=== PATIENT | male | born 2000 | race Hispanic/Latino ===

== ENCOUNTER 2019-07-04 07:38 | Emergency (ER) | payer OTHER ==
[~2019-07-04] VITALS: Ht 170.2 cm; Wt 95.3 kg
[2019-07-04] MEDS ORDERED: ONDANSETRON 4 MG ORAL DISINTEGRATING TAB (Q0162 PER 1MG) PO ONE (08:15)
[2019-07-04 08:58] LABS: BASO # 0.1 10^3/uL (0.0-0.2); BASO % 0.6 % (0.0-1.0); EOS # 0.2 10^3/uL (0.0-0.5); EOS % 2.3 % (0.0-3.0); HEMATOCRIT 49.3 % (42.0-52.0); HEMOGLOBIN 16.1 g/dl (13.5-17.5); LYMPH % 12.2 % (24.0-44.0); MEAN CORPUSCULAR HEMOGLOBIN 29.2 pg (27.0-33.0); MEAN CORPUSCULAR HGB CONC 32.7 g/dl (32.0-36.5); MEAN CORPUSCULAR VOLUME 89.3 fl (80.0-96.0); MONO % 11.6 % (0.0-5.0); NEUTROPHILS # 6.1 10^3/uL (1.5-8.5); NEUTROPHILS % 72.7 % (36.0-66.0); PLATELET COUNT, AUTOMATED 227 10^3/uL (150-450); RED BLOOD COUNT 5.52 10^6/uL (4.30-6.10); WHITE BLOOD COUNT 8.3 10^3/uL (4.0-10.0)
[2019-07-04 09:25] LABS: ALBUMIN 4.1 GM/DL (3.2-5.2); ALT/SGPT 61 U/L (12-78); BILIRUBIN,DIRECT 0.2 MG/DL (0.0-0.2); BILIRUBIN,TOTAL 0.6 MG/DL (0.2-1.0); BLOOD UREA NITROGEN 15 MG/DL (7-18); CARBON DIOXIDE LEVEL 29 MEQ/L (21-32); CHLORIDE LEVEL 105 MEQ/L (98-107); CREATININE FOR GFR 1.31 MG/DL (0.70-1.30); GLUCOSE, FASTING 85 MG/DL (70-100); POTASSIUM SERUM 4.5 MEQ/L (3.5-5.1); SODIUM LEVEL 140 MEQ/L (136-145); TOTAL PROTEIN 7.7 GM/DL (6.4-8.2)
[2019-07-04] MEDS ORDERED: ONDA4TAB6 PO (09:33)
[2019-07-04 09:52] VITALS: BP 127/76
== END 2019-07-04 09:53 | disposition home or self-care (01) ==
LOC: M ED 07:38
DX: E86.0 Dehydration (principal)
CPT/HCPCS: 80048; 80076; 85025; 99283; Q0162

== ENCOUNTER 2019-08-21 06:40 | Emergency (ER) | payer OTHER ==
[~2019-08-21] VITALS: Ht 170.2 cm; Wt 84.1 kg
[~2019-08-21 06:40] MED LIST: ONDA4TAB6 PO
[2019-08-21 10:00] LABS: AMORPHOUS SEDIMENT SMALL (NEGATIVE); APPEARANCE, URINE HAZY (CLEAR); BACTERIA, URINE AUTO NEGATIVE (NEGATIVE); BILIRUBIN, URINE AUTO NEGATIVE (NEGATIVE); BLOOD, URINE BLOOD NEGATIVE (NEGATIVE); COLOR, URINE YELLOW (YELLOW); GLUCOSE, URINE (UA) AUTO NEGATIVE (NEGATIVE); KETONE, URINE AUTO 1+ mg/dL (NEGATIVE); LEUKOCYTE ESTERASE, URINE AUTO NEGATIVE (NEGATIVE); MUCUS, URINE SMALL (NEGATIVE); NITRITE, URINE AUTO NEGATIVE (NEGATIVE); PROTEIN, URINE AUTO 1+ mg/dL (NEGATIVE); RBC, URINE AUTO 5 /HPF (0-3); SPECIFIC GRAVITY URINE AUTO 1.034 (1.002-1.035); SQUAMOUS EPITHELIAL CELL UR AU 0 /HPF (0-6); WBC, URINE AUTO 1 /HPF (0-3)
[2019-08-21 10:07] LABS: BASO % 0.3 % (0.0-1.0); EOS % 0.2 % (0.0-3.0); HEMATOCRIT 51.6 % (42.0-52.0); HEMOGLOBIN 17.6 g/dl (13.5-17.5); LYMPH # 2.1 10^3/uL (1.5-5.0); LYMPH % 16.6 % (24.0-44.0); MEAN CORPUSCULAR HEMOGLOBIN 29.4 pg (27.0-33.0); MEAN CORPUSCULAR HGB CONC 34.1 g/dl (32.0-36.5); MEAN CORPUSCULAR VOLUME 86.1 fl (80.0-96.0); MONO # 1.2 10^3/uL (0.0-0.8); MONO % 9.2 % (0.0-5.0); NEUTROPHILS # 9.3 10^3/uL (1.5-8.5); NEUTROPHILS % 73.3 % (36.0-66.0); PLATELET COUNT, AUTOMATED 340 10^3/uL (150-450); RED BLOOD COUNT 5.99 10^6/uL (4.30-6.10); WHITE BLOOD COUNT 12.7 10^3/uL (4.0-10.0)
[2019-08-21 10:30] LABS: INFLUENZA A AMPLIFICATION NEGATIVE (NEGATIVE); INFLUENZA B AMPLIFICATION NEGATIVE (NEGATIVE)
[2019-08-21] MEDS ORDERED: NS 1,000 ML IV ONE (10:30)
[2019-08-21] MEDS ORDERED: PANTOPRAZOLE 40MG INJ (PROTONIX) (C9113) IV ONE (10:30)
[2019-08-21] MEDS ORDERED: FAMOTIDINE IV BAG 20 MG in IV 1 EA IV ONE (10:30)
[2019-08-21 10:31] LABS: ALBUMIN 5.2 GM/DL (3.2-5.2); BILIRUBIN,DIRECT 0.4 MG/DL (0.0-0.2); BILIRUBIN,TOTAL 1.6 MG/DL (0.2-1.0); TOTAL PROTEIN 8.8 GM/DL (6.4-8.2)
[2019-08-21] MEDS ORDERED: ISOVUE-370 76% 100ML VIAL (Q9967) As Ordered ONE (10:43)
--- NOTE | 2019-08-21 11:12 | REP ---
Clinical: Abdominal pain. Technique: Axial contrast enhanced images from the lung bases to the pubic symphysis using 100 ml Isovue 370 intravenous contrast material with coronal and sagittal re-formations. Findings: Lung bases are clear. Visualized heart and pericardium normal. Liver, spleen, pancreas, gallbladder, bilateral adrenal glands and kidneys are normal. The enteric system is without obstruction or acute inflammatory process. Normal terminal ileum and appendix. Pelvis demonstrates normal bladder and age appropriate prostate/seminal vesicles. No ascites. No free air. No adenopathy. Abdominal aorta and vasculature normal. Musculoskeletal structures are intact. Impression: Normal contrast enhanced CT of the abdomen and pelvis. Electronically Signed by Fredi Germain MD 08/21/2019 11:03 A
[2019-08-21] MEDS ORDERED: SUCRALFATE SUSP 1GM/10ML UD PO ONE (13:00)
[2019-08-21] MEDS ORDERED: SUCR1SS PO (13:31)
[2019-08-21] MEDS ORDERED: FAMO40TA3 PO (13:31)
[2019-08-21] MEDS ORDERED: OMEP40CA97 PO (13:31)
[2019-08-21 13:52] VITALS: BP 140/62
== END 2019-08-21 13:55 | disposition home or self-care (01) ==
LOC: M ED 06:40
DX: K29.70 Gastritis, unspecified, without bleeding (principal)
CPT/HCPCS: 74177; 80047; 80076; 81001; 82150; 83690; 85025; 87502; 96361; 96365; 96375; 99284; C9113; Q9967

== ENCOUNTER 2020-05-18 08:54 | Day surgery (SDC) | payer OTHER ==
[~2020-05-18] VITALS: Ht 170.2 cm; Wt 86.2 kg
[~2020-05-18 08:54] MED LIST changes: +FAMO40TA3 PO; +LIDOCAINE 2% 100MG/5ML SDV (FOR ANES.) As Ordered ONE; +NS 1,000 ML IV ONE; +OMEP40CA97 PO; +SUCR1SS PO; +propofoL 200 MG/20 ML VIAL As Ordered ONE
[2020-05-18] MEDS ORDERED: CARA1TAB6 PO (09:18)
--- NOTE | 2020-05-18 09:59 | ROOR ---
Patient Name: Carlos Bray Procedure Date: 05/18/2020 9:48 AM Date of : 2000 Age: 19 Room: [facility] Gender: Male Note Status: Finalized Procedure: Upper GI endoscopy Indications: Epigastric abdominal pain, Heartburn Providers: Kyle Yates MD Referring MD: EMERSON NORMAN MD Requesting Provider: Medicines: Monitored Anesthesia Care Complications: No immediate complications. Procedure: Pre-Anesthesia Assessment: - The heart rate, respiratory rate, oxygen saturations, blood pressure, adequacy of pulmonary ventilation, and response to care were monitored throughout the procedure. The Endoscope was introduced through the mouth, and advanced to the second part of duodenum. The upper GI endoscopy was accomplished without difficulty. The patient tolerated the procedure well. Findings: The Z-line was regular and was found 35 cm from the incisors. No other significant abnormalities were identified in a careful examination of the stomach. The exam of the duodenum was otherwise normal. Impression: - Z-line regular, 35 cm from the incisors. - No specimens collected. - The examination was otherwise normal. Recommendation: - Patient has a contact number available for emergencies. The signs and symptoms of potential delayed complications were discussed with the patient. Return to normal activities tomorrow. Written discharge instructions were provided to the patient. - High fiber diet. - Discharge patient to home. - Continue present medications. - Return to referring physician. - The findings and recommendations were discussed with the patient. Kyle Yates MD Kyle Yates MD 05/18/2020 9:58:44 AM Electronically signed by Kyle Yates MD Number of Addenda: 0 Note Initiated On: 05/18/2020 9:48 AM Estimated Blood Loss: Estimated blood loss: none.
--- NOTE | 2020-05-18 10:11 | ROOR ---
Patient Name: Carlos Bray Procedure Date: 05/18/2020 9:49 AM Date of : 2000 Age: 19 Room: [facility] Gender: Male Note Status: Finalized Procedure: Total Colonoscopy to Cecum + ileoscopy + Bx Indications: Clinically significant diarrhea of unexplained origin Providers: Kyle Yates MD Referring MD: EMERSON NORMAN MD Requesting Provider: Medicines: Monitored Anesthesia Care Complications: No immediate complications. Procedure: Pre-Anesthesia Assessment: - The heart rate, respiratory rate, oxygen saturations, blood pressure, adequacy of pulmonary ventilation, and response to care were monitored throughout the procedure. The Colonoscope was introduced through the anus and advanced to the terminal ileum, with identification of the appendiceal orifice and IC valve. The colonoscopy was performed without difficulty. The patient tolerated the procedure well. The quality of the bowel preparation was excellent. Findings: The perianal and digital rectal examinations were normal. No other significant abnormalities were identified in a careful examination of the remainder of the colon. The terminal ileum appeared normal. Biopsies for histology were taken with a cold forceps from the transverse colon and descending colon for evaluation of microscopic colitis. The exam was otherwise without abnormality. Impression: - The examined portion of the ileum was normal. - The examination was otherwise normal. - Biopsies were taken with a cold forceps from the transverse colon and descending colon for evaluation of microscopic colitis. - The exam was otherwise normal to the cecum. Recommendation: - Patient has a contact number available for emergencies. The signs and symptoms of potential delayed complications were discussed with the patient. Return to normal activities tomorrow. Written discharge instructions were provided to the patient. - High fiber diet. - Discharge patient to home. - Continue present medications. - Await pathology results. - Telephone GI clinic for pathology results in 1 week. - Repeat colonoscopy at age 49 for screening purposes. - Return to referring physician. - The findings and recommendations were discussed with the patient. Kyle Yates MD Kyle Yates MD 05/18/2020 10:10:35 AM Electronically signed by Kyle Yates MD Number of Addenda: 0 Note Initiated On: 05/18/2020 9:49 AM Estimated Blood Loss: Estimated blood loss: none.
[2020-05-18] MEDS ORDERED: propofoL 200 MG/20 ML VIAL As Ordered ONE (10:12)
[2020-05-18 10:40] VITALS: BP 114/75
== END 2020-05-18 10:50 | disposition home or self-care (01) ==
LOC: M OPP 08:54
PROVIDERS: ATTEND Internal Medicine Gastroenterology
DX: R19.7 Diarrhea, unspecified (principal); R10.13 Epigastric pain; F17.290 Nicotine dependence, other tobacco product, uncomplicated

== ENCOUNTER 2020-07-26 18:06 | Emergency (ER) | payer OTHER ==
[~2020-07-26] VITALS: Ht 170.2 cm; Wt 85.8 kg
[2020-07-26 18:06] VITALS: BP 124/72
[~2020-07-26 18:06] MED LIST changes: +CARA1TAB6 PO; -LIDOCAINE 2% 100MG/5ML SDV (FOR ANES.) As Ordered ONE; -NS 1,000 ML IV ONE; -propofoL 200 MG/20 ML VIAL As Ordered ONE
--- OUTSIDE RECORDS SUMMARY | 2020-07-26 18:12 | CCD | Continuity of Care Document ---
Author Author Carlos YATES M.D Organization Unknown Address [address] [place] [id number] Phone [phone] Care Team Providers Care Clinical Veterinarian Name Role Phone Serge [facility] Problems Active Problems Provider Date Abdominal pain Kyle Yates M.D. Onset: 04/30/20 19 Social History Type Date Description Comments Sex Unknown ETOH Use Denies alcohol use Tobacco Use Start: Unknown Electronic Cigarette VAPE DAILY Allergies, Adverse Reactions, Alerts Description No Known Drug Allergies Medications Active Medications SIG Qnty Indications Ordering Provide r Date Suprep Bowel Prep Kit 17.5-3.13-1.6GM/177ML Solution use as directed 354ml Kyle Yates M.D. 04/30/2020 Carafate 1gm Tablets 1 tab by mouth four times a day before meals at bedtime Unknown Omeprazole 40mg Capsules DR 1 cap by mouth every morning Unknown Immunizations Description No Information Available Vital Signs Date Vital Result Comment 04/30/2020 10:00am Height 67 inches 5'7" Weight 195.00 lb BP Systolic 111 mmHg BP Diastolic 77 mmHg Heart Rate 69 /min BMI (Body Mass Index) 30.5 kg/m2 Weight 88.452 kg Body Temperature 97.5 F Results Test Acquired Date Facility Test Result H/L Range Note Laboratory test finding 05/18/2020 [facility] [address] [place] [address] Pathology Request For Service (SEE NOTE) 1, 2 1 FINAL DIAGNOSIS Colon, random, biopsies: Colonic mucosa with no specific changes. No evidence for microscopic colitis. 05/20/2020 - 0730 CLINICAL DIAGNOSIS Abdominal pain, heartburn, diarrhea 05/18/2020 - 1438 GROSS DIAGNOSIS Received in formalin labeled "random colon biopsies" is one fragment of stinson tissue 0.2 x 0.2 x 0.2 cm. All in one. -SV 05/18/2020 - 1437 Signed RACHELL GARCIA MD 05/20/2020 1405 2 05/24/20 (Sun May 24) 10:19 PM KYLE YATES biopsies are all negative for any path. Procedures Date Code Description Status 05/18/2020 94315 Colonoscopy Flexible W/Biopsy Co mpleted 05/18/2020 80477 Endoscopy Upper GI Complex Diagn ostic Completed Medical Devices Description No Information Available Encounters Type Date Location Provider Dx Diagnosis Office Visit 04/30/2020 9:45a Main Office Kyle Yates M.D. R 19.7 Diarrhea, unspecified K21.9 Gastro-esophageal reflux dis ease without esophagitis Assessments Date Code Description Provider 05/18/2020 R19.7 Diarrhea, unspecified Kyle Yates M.D. 05/18/2020 K63.89 Other specified diseases of inte adamaris Kyle Yates M.D. 05/18/2020 R10.13 Epigastric pain Kyle rollins M.D. 04/30/2020 R19.7 Diarrhea Kyle rollins M.D. 04/30/2020 K21.9 Gastroesophageal reflux disease Kyle Yates M.D. Plan of Treatment 04/30/2020 - Kyle Yates M.D.* R19.7 Diarrhea* Comments:* 19 yo ADS who presents for a h/o abdominal pain, and diarrhea since 06/27. No c/o weight loss, change in bowel habits, or rectal bleeding. No family h/o colon cancer. No h/o chest pain, or sob. Plan:1. Colonoscopy + egd.2. Informed consent. * K21.9 Gastroesophageal reflux disease* Comments:* As above. Functional Status Description No Information Available Mental Status Description No Information Available Referrals Refer to Reason for Referral Status Appt Date Kyle Yates M.D. Created [address] [place] [address] [phone]
--- OUTSIDE RECORDS SUMMARY | 2020-07-26 18:12 | CCD ---
Author Author [facility] Organization [facility] Address Unknown Phone Unavailable Care Team Providers Care Hat Copyist Name Role Phone Brigette Yates MD Unavailable Unavailable Brigette Yates MD Unavailable Unavailable Brigette Yates MD Unavailable Unavailable Brigette Yates MD Unavailable Unavailable Brigette Yates MD Unavailable Unavailable Brigette Yates MD Unavailable Unavailable Brigette Yates MD Unavailable Unavailable Brigette Yates MD Unavailable Unavailable Brigette Yates MD Unavailable Unavailable Brigette Yates MD Unavailable Unavailable Brigette Yates MD Unavailable Unavailable Brigette Yates MD Unavailable Unavailable Brigette Yates MD Unavailable Unavailable Brigette Yates MD Unavailable Unavailable Brigette Yates MD Unavailable Unavailable Brigette Yates MD Unavailable Unavailable Brigette Yates MD Unavailable Unavailable Brigette Yates MD Unavailable Unavailable Brigette Yates MD Unavailable Unavailable Brigette Yates MD Unavailable Unavailable Brigette Yates MD Unavailable Unavailable Brigette Yates MD Unavailable Unavailable Brigette Yates MD Unavailable Unavailable Brigette Yates MD Unavailable Unavailable Brigette Yates MD Unavailable Unavailable Brigette Yates MD Unavailable Unavailable Brigette Yates MD Unavailable Unavailable Brigette Yates MD Unavailable Unavailable Brigette Yates MD Unavailable Unavailable Brigette Yates MD Unavailable Unavailable Brigetet Yates MD Unavailable Unavailable Brigette Yates MD Unavailable Unavailable Milan, S Kyle GRAY Unavailable Unavailable Milan, S yKle GRAY Unavailable Unavailable Milan, S Kyle MD Unavailable Unavailable Milan, S Kyle MD Unavailable Unavailable Milan, S Kyle MD Unavailable Unavailable Milan, S Kyle MD Unavailable Unavailable Milan, S Kyle MD Unavailable Unavailable Milan, S Kyle MD Unavailable Unavailable Milan, S Kyle MD Unavailable Unavailable Milan, S Kyle MD Unavailable Unavailable Milan, S Kyle MD Unavailable Unavailable Milan, S Kyle MD Unavailable Unavailable Milan, S Kyle MD Unavailable Unavailable Milan, S Kyle MD Unavailable Unavailable Milan, S Kyle MD Unavailable Unavailable LESTER BAPTISTE MD Unavailable [phone] LESTER BAPTISTE MD Unavailable [phone] LESTER BAPTISTE MD Unavailable [phone] LESTER BAPTISTE MD Unavailable [phone] LESTER BAPTISTE MD Unavailable [phone] LESTER BAPTISTE MD Unavailable [phone] 05 LSETER BAPTISTE MD Unavailable [phone] LESTER BAPTISTE MD Unavailable [phone] LESTER BAPTISTE MD Unavailable [phone] 05 LESTER BAPTISTE MD Unavailable [phone] 05 LESTER BAPTISTE MD Unavailable [phone] 05 LESTER BAPTISTE MD Unavailable [phone] 05 LESTER BAPTISTE MD Unavailable [phone] 05 LESTER BAPTISTE MD Unavailable [phone] 05 LESTER BAPTISTE MD Unavailable [phone] 05 LESTER BAPTISTE MD Unavailable [phone] 05 LESTER BAPTISTE MD Unavailable [phone] 05 LESTER BAPTISTE MD Unavailable [phone] 05 LESTER BAPTISTE MD Unavailable [phone] 05 LESTER BAPTISTE MD Unavailable [phone] 05 LESTER BAPTISTE MD Unavailable [phone] LESTER BAPTISTE MD Unavailable [phone] BLACK, LESTER SMITH MD Unavailable [phone] BLACK, LESTER SMITH MD Unavailable [phone] BLACK, LESTER SMITH MD Unavailable [phone] BLACK, LESTER SMITH MD Unavailable [phone] BLACK, LESTER SMITH MD Unavailable [phone] BLACK, LESTER SMITH MD Unavailable [phone] BLACK, LESTER SMITH MD Unavailable [phone] BLACK, LESTER SMITH MD Unavailable [phone] BLACK, LESTER SMITH MD Unavailable [phone] BLACK, LESTER SMITH MD Unavailable [phone] BLACK, LESTER SMITH MD Unavailable [phone] BLACK, LESTER SMITH MD Unavailable [phone] BLACK, LESTER SMITH MD Unavailable [phone] BLACK, LESTER SMITH MD Unavailable [phone] BLACK, LESTER SMITH MD Unavailable [phone] BLACK, LESTER SMITH MD Unavailable [phone] BLACK, LESTER SMITH MD Unavailable [phone] BLACK, LESTER SMITH MD Unavailable [phone] BLACK, LESTER SMITH MD Unavailable [phone] 05 BLACK, LESTER SMITH MD Unavailable [phone] 05 BLACK, LESTER SMITH MD Unavailable [phone] 05 BLACK, LESTER SMITH MD Unavailable [phone] 05 BLACK, LESTER SMITH MD Unavailable [phone] 05 BLACK, LESTER SMITH MD Unavailable [phone] BLACK, LESTER SMITH MD Unavailable [phone] BLACK, LESTER SMITH MD Unavailable [phone] BLACK, LESTER SMITH MD Unavailable [phone] UNKNOWN, [facility] Unavailable Unavailable Lucy RIVERA MD Unavailable Unavailable Lucy RIVERA MD Unavailable Unavailable MIGUEL, L WU MD Unavailable Unavailable MIGUEL, L WU MD Unavailable Unavailable MIGUEL, L WU MD Unavailable Unavailable MIGUEL, L WU MD Unavailable Unavailable MIGUEL, L WU MD Unavailable Unavailable MIGUEL, L WU MD Unavailable Unavailable MIGUEL, L WU MD Unavailable Unavailable MIGUEL, L WU MD Unavailable Unavailable MIGUEL, L WU MD Unavailable Unavailable MIGUEL, L WU MD Unavailable Unavailable MIGUEL, L WU MD Unavailable Unavailable MIGUEL, L WU MD Unavailable Unavailable MIGUEL, L WU MD Unavailable Unavailable MIGUEL, L WU MD Unavailable Unavailable MIGUEL, L WU MD Unavailable Unavailable MIGUEL, L WU MD Unavailable Unavailable MIGUEL, L WU MD Unavailable Unavailable MIGUEL, L WU MD Unavailable Unavailable MIGUEL, L WU MD Unavailable Unavailable MIGUEL, L WU MD Unavailable Unavailable MIGUEL, L WU MD Unavailable Unavailable Re-disclosure Warning The records that you are about to access may contain information from federally-assisted alcohol or drug abuse programs. If such information is present, then the following federally mandated warning applies: This information has been disclosed to you from records protected by federal confidentiality rules (42 CFR part 2). The federal rules prohibit you from making any further disclosure of this information unless further disclosure is expressly permitted by the written consent of the person to whom it pertains or as otherwise permitted by 42 CFR part 2. A general authorization for the release of medical or other information is NOT sufficient for this purpose. The Federal rules restrict any use of the information to criminally investigate or prosecute any alcohol or drug abuse patient.The records that you are about to access may contain highly sensitive health information, the redisclosure of which is protected by Article 27-F of the [facility] Public Health law. If you continue you may have access to information: Regarding HIV / AIDS; Provided by facilities licensed or operated by the [facility] Office of Mental Health; or Provided by the [facility] Office for People With Developmental Disabilities. If such information is present, then the following [facility] mandated warning applies: This information has been disclosed to you from confidential records which are protected by state law. State law prohibits you from making any further disclosure of this information without the specific written consent of the person to whom it pertains, or as otherwise permitted by law. Any unauthorized further disclosure in violation of state law may result in a fine or nursing home sentence or both. A general authorization for the release of medical or other information is NOT sufficient authorization for further disc losure. Encounters Encounter Providers Location Date Indications Data Source(s ) Emergency Attender: WU RIVERA MDConsultant: EMERSON MONTEZ 07/20/2020 01:59:00 AM EST - 07/20/2020 03:20:00 AM [facility] Patient discharged. Outpatient Attender: Kyle Yates MD Main Office 04/30/2020 09:45:00 AM EDT [facility] ([facility]) Outpatient 09/03/2019 08:02:00 AM [facility] Emergency Attender: SARAH BAPTISTE MD 0 07/17/2019 06:11:00 PM EST - 07/17/2019 07:13:00 PM [facility] Patient admitted. Medications Medication Brand Name Start Date Product Form Dose Route Admi nistrative Instructions Pharmacy Instructions Status Indications Reaction Description Data Source(s) Suprep Bowel Prep Kit Suprep Bowel Prep Kit 04/30/2020 12:00:00 AM EDT active [facility] ([facility]) Insurance Providers Payer name Policy type / Coverage type Policy ID Covered republican ID Covered republican's relationship to joseph Policy Joseph Plan Information [facility] [id number] SP [id number] [facility] HU[facility]NA - O/P [id number] 18 [id number] [facility] O [id number] S [id number] SELF PAY ONLY [id number] SP [id number] Problems, Conditions, and Diagnoses Code Display Name Description Problem Type Effective Dates Data Source(s) 68690236 Abdominal pain Abdominal pain Problem 04/30/2020 12:00: 00 AM EDT [facility] ([facility]) [id number] Un[address] in unspeci fied non-institutional (private) residence as the place of occurrence of the external cause Unspecified place in unspecified non-institutional (private) residence as the place of occurrence of the external cause Diagnosis 07/20/2020 01:59:00 AM [facility] [id number] Bitten by dog, initial encounter Bitten by dog, initial encounter Diagnosis 07/20/2020 01:59:00 AM [facility] [id number] Other rat exterminator (current) drug therapy O ther rat exterminator (current) drug therapy Diagnosis 07/20/2020 01:59:00 AM [facility] [id number] Laceration without foreign b joanne of other part of head, initial encounter Laceration without foreign body of other part of head, initial encounter Diagnosis 07/20/2020 01:59:00 AM [facility] [id number] Open bite of other part of head, initial encounter Open bite of other part of head, initial encounter Diagnosis 07/20/2020 01:59:00 AM [facility] R1013 Epigastric pain Epigastric pain Diagnosis 07/17/2019 06:1 1:00 PM [facility] R112 Nausea with vomiting, unspecified Nausea with vo miting, unspecified Diagnosis 07/17/2019 06:11:00 PM [facility] Surgeries/Procedures Procedure Description Date Indications Data Source(s) UPPER GI NDSC DX W/WO COLLECTION SPECIMEN 05/18/2020 1 2:00:00 AM EST [facility] ([facility]) COLONOSCOPY W/BIOPSY SINGLE/MULTIPLE 05/18/2020 12:00: 00 AM EST [facility] ([facility]) Results ID Date Data Source [id number] 07/20/2020 01:59:00 AM [facility] 1 OrderSheet [facility] Emergency Department [address] [place] [address] Phone #: [phone]- [phone] 07/20/2020 01:59 Patient: NEVA GUILLAUME Sex: M : 2000 Age: 19yWEIGHT:85.7 kg (S) HEIGHT:67 inches (S) BMI:29.6ALLERGIES: No Known Drug AllergyCHIEF COMPLAINT: dogDIAGNOSIS: Laceration - Injury, Bite of animalLAB ORDERSOrder Description Priority Entered Acknowledged InitialedDIAGNOSTIC STUDY ORDERSOrder Description Priority Entered Acknowledged InitialedMEDICATION/IV/DRIP/FLUID ORDERSOrder Description Priority Entered Acknowledged InitialedBacitracin Zinc 03:06 07/20/2020 03:13 Melany,Topical 1 Wu Rivera MD; Sonja Olveraapplicat Micheleentin PO 875 03:06 07/20/2020 03:12 mg Salud (NOW x1) Wu Rivera MD; Sonja OlveraGENERAL ORDERSOrder Description Priority Entered Acknowledged Initialed[Electronically signed by Sonja Brannon R.N. (03:20 07/20/2020)][Electronically signed by Wu Rivera MD (03:26 07/20/2020)][Electronically locked by Sonja Brannon R.N. (03:07/20/2020)] Name Value Range Interpretation Code Description Data Rashida rce(s) Supporting Document(s) ID Date Data Source [id number] 07/20/2020 01:59:00 AM EST [facility] 1 Medication Reconciliation Report [facility] Emergency Department [address] [place] [address] Phone #: ext- [phone] 07/20/2020 01:59 Patient: NEVA GUILLAUME Sex: M : 2000 Age: 19yWeight: 85.7 kgHeight/Length: 67 in.BMI: 29.6ALLERGIES: No Known Drug AllergyThe patient's Home Medications are listed below:CONTINUE TAKING THE FOLLOWING MEDICATIONS: Carafate Oral Omeprazole OralThe source(s) of the original Home Medication information:Not obtained.The following Medications were given to the patient in the Emergency Department:Augmentin [PO] PO 875 mg, administered: 03:12 07/20/2020acitracin Zinc [Topical] Topical 1 application, administered: 03:13 07/20/2020The following Medications were prescribed to the patient:Augmentin 875 mg-125 mg tablet Take 1 tablet twice a day -- Dispense 20 tablet. Refills: 0. Substitutionpermitted.Pharmacy - [facility] [id number] ; [place] [id number]. . -- Wu Rivera MD Name Value Range Interpretation Code Description Data Rashida rce(s) Supporting Document(s) ID Date Data Source [id number] 07/20/2020 01:59:00 AM [facility] 1 Medication Administration Record [facility] Emergency Department [address] [place] [address] Phone #: ext- [phone] 07/20/2020 01:59 Patient: NEVA GUILLAUME Sex: M : 2000 Age: 19yWeight: 85.7 kgHeight/Length: 67 inBMI: 29.6ALLERGIES: No Known Drug Allergy Date/Time Medication Administered Medication OrderedGiven BACITRACIN ZINC [TOPICAL] Bacitracin Zinc Topical 103:13 07/20/2020 Dose: 1 application Topical applicationSonja Brannon RRajGiven AUGMENTIN [PO] (AMOXICILLIN-POT Augmentin PO 875 mg (NOW x1)03:12 07/20/2020 CLAVULANATE)Sonja Brannon R.N. Dose: 875 mg PO Name Value Range Interpretation Code Description Data Rashida rce(s) Supporting Document(s) ID Date Data Source [id number] 07/20/2020 01:59:00 AM EST [facility] 1 General Instructions [facility] Emergency Department [address] [place] [address] Phone #: ext- [phone] 07/20/2020 01:59 Patient: NEVA GUILLAUME Sex: M : 2000 Age: 19y Multiple deep dog bites to the chin and left cheek area. Multiple lacerations to the left cheek area.INSTRUCTIONS (Take tylenol and motrin for pain. Take the augmentin to help prevent infection. return if worse or any symptoms that may be associated with infection including redness, swelling, pus coming out of the wound, fever or chills. Please follow up with your doctor or come back to the ED for suture removal in 1 week. apply antibiotic ointment over the wound twice a day for 1 week. after the sutures come out, apply vitamin e oil and sunscreen to the healed wounds daily to help prevent scaring. do this for 2 years daily. The ED or [facility] control/[facility] will contact you regarding the possible need for rabies vaccine.). Warnings: INFECTION: Watch for signs of infection (increasing heat and redness, pus-like drainage, swelling, or increased pain). Return or see your doctor if these signs occur. GENERAL WARNINGS: Return or contact your physician immediately if your condition worsens or changes unexpectedly, if not improving as expected, or if other problems arise. Your Current Medications: Your current home medications have been reviewed. CONTINUE TAKING THE FOLLOWING MEDICATIONS: Carafate Oral. Omeprazole Oral. Prescription Medications: Augmentin 875 mg-125 mg tablet Take 1 tablet twice a day -- Dispense 20 tablet. Refills: 0. Substitution permitted. Pharmacy - [facility] [id number] ; [place] [address]. . Follow-up: Follow up with your doctor in one week for suture removal and wound check. Call for an appointment. Reason for referral: evaluation. Summary of care provided to patient via paper. Understanding of the discharge instructions verbalized by patient. ADDITIONAL INFORMATIONAnimal Bite (General) 2 General Instructions [facility] Emergency Department [address] [place] [address] Phone #: ext- [phone] 07/20/2020 01:59 Patient: NEVA GUILLAUME Sex: M : 2000 Age: 19yAn animal bite can cause a wound deep enough to break the skin. In such cases, the wound iscleaned and then sometimes closed. If the wound is closed, it may not be closed completely. This isso that fluid can drain and prevent the wound from becoming infected. In addition to wound care, atetanus shot (injectio n) may be given, if needed.Home care Care for the wound as directed. If a dressing was applied to the wound, change it as directed. Wash your hands well with soap and warm water before and after caring for the wound. This helps lower the risk of infection. If the wound bleeds, place a clean, soft cloth on the wound. Then firmly apply pressure until the bleeding stops. This may take up to 5 minutes. Don't release the pressure and look at the wound during this time. Most skin wounds heal within 10 days. But an infection can occur even with correct treatment. So be sure to watch the wound for signs of infection (see below). Check the wound as often as directed by your healthcare provider. Antibiotics may be prescribed. These help prevent or treat infection. If you're given antibiotics, take them as directed. Also be sure to complete the medicines.Rabies preventionRabies is a virus that can be carried in certain animals. These can include domestic animals such as 3 General Instructions [facility] Emergency Department [address] [place] [address] Phone #: ext- [phone] 07/20/2020 01:59 Patient: NEVA GUILLAUME Sex: M : 2000 Age: 19ydogs and cats. Wild animals such as skunks, raccoons, foxes, and bats can also carry rabies. Petsfully vaccinated against rabies (2 shots) are at very low risk of infection. But because human rabies isalmost always fatal, any biting pet should be confined for 10 days as an extra safety measure. Ingeneral, if there is a risk for rabies, the following steps may need to be taken: If someone's pet dog or cat has bitten you, it should be kept in a secure area for the next 10 days to watch for signs of illness. (If the pet optometrist/practice owner won't allow this, contact your local animal control center.) Ask the pet optometrist/practice owner for vaccination records if available. If the dog or cat becomes ill or dies during that time, contact your local animal control center at once so the animal may be tested for rabies. If the pet stays healthy for the next 10 days, there is no danger of rabies in the animal or you. If a stray pet bit you, contact your local animal control center. They can give information on capture, quarantine, and animal rabies testing. If you can't find the animal that bit you in the next 2 days, and if rabies exists in your region, you may need to receive the rabies vaccine series. Call your healthcare provider right away. Or return to the emergency department right away. All animal bites should be reported to the local animal control center. If you were not given a form to fill out, you can report this yourself.Follow-up careFollow up with your healthcare provider, or as directed.When to get medical adviceGet medical care right away if any of these occur: Signs of infection: o Spreading redness or warmth from the wound o Increased pain or swelling o Fever of 100.4F (38C) or higher, or as directed by your healthcare provider o Colored fluid or pus draining from the wound Signs of rabies infection: o Headache o Confusion o Strange behavior 4 General Instructions [facility] Emergency Department [address] [place] [address] Phone #: ext- [phone] 07/20/2020 01:59 Patient: NEAV GUILLAUME Sex: M : 2000 Age: 19y o Increased salivating and drooling o Seizure Decreased ability to move any body part near the bite area Bleeding that can't be stopped after 5 minutes of firm pressure [employer]. [address] [place] [address]. All rights reserved. This information is not intended as asubstitute for professional medical care. Always follow your healthcare es fabio's instructions.Rabies Vaccine suspension for injectionWhat is this medicine?RABIES VACCINE (ray BEES vax EEN) is used to prevent rabies infection. Rabies is mostly adisease of animals. Humans may get rabies if they are bitten by animals that have rabies. Thevaccine may be given to protect someone with a high risk of rabies or it may be given to someoneafter they have been exposed.How should I use this medicine?This vaccine is for injection into a muscle. It is given by a health healthcare science specialist.A copy of Vaccine Information Statements will be given before each vaccination. Read this sheetcarefully each time. The sheet may change frequently.Talk to your powder room attendant regarding the use of this medicine in children. While this drug may beprescribed for children and infants, precautions do apply.What side effects may I notice from receiving this medicine?Side effects that you should report to your doctor or health healthcare science specialist as soon as possible: allergic reactions like skin rash, itching or hives, swelling of the face, lips, or tongue changes in vision joint pain with fever pain, tingling, numbness in the hands or feet stiff neck and sensitivity to light unusually weak or tiredSide effects that usually do not require medical attention (report to your doctor or health careprofessional if they continue or are bothersome): 5 General Instructions [facility] Emergency Department [address] [place] [address] Phone #: [phone] 07/20/2020 01:59 Patient: NEVA GUILLAUME Sex: Tri : 2000 Age: 19y dizziness headache muscle aches and pains pain, redness, itching or swelling at site where injected stomach pain tirednessWhat may interact with this medicine? antimalarial drugs etanercept immune globulins infliximab medicines for organ transplan t medicines to treat cancer other vaccines some medicines for arthritis steroid medicines like prednisone or cortisoneWhat if I miss a dose?Keep appointments for follow-up doses as directed. It is important not to miss your dose. Call yourdoctor or health healthcare science specialist if you are unable to keep an appointment. All of the vaccine dosesmust be given in order to provide proper protection.Where should I keep my medicine?This drug is given in a hospital or clinic and will not be stored at home.What should I tell my health care provider before I take this medicine?They need to know if you have any of these conditions: bleeding disorder cancer 6 General Instructions [facility] Emergency Department [address] [place] [address] Phone #: ext- [phone] 07/20/2020 01:59 Patient: NEVA GUILLAUME Sex: M : 2000 Age: 19y HIV or AIDS immune system problems low blood counts, like low white cell, platelet, or red cell counts recent or ongoing radiation therapy take medicines that treat or prevent blood clots an unusual or allergic reaction to vaccines, albumin, eggs, neomycin, other medicines, foods, dyes, or preservatives or trying to get breast-feedingWhat should I watch for while using this medicine?This vaccine, like all vaccines, may not fully protect everyone.NOTE:This sheet is a summary. It may not cover all possible information. If you have questions about this medicine, talk to your doctor, pharmacist, orhealth care provider. Copyright 2020 ElsevierLaceration, All ClosuresA laceration is a cut through the skin. This will usually require stitches or dario if it's deep. Minorcuts may be treated with a surgical tape closure or skin glue. 7 General Instructions [facility] Emergency Department [address] [place] [address] Phone #: ext- [phone] 07/20/2020 01:59 Patient: NEVA GUILLAUME Sex: M : 2000 Age: 19yHome care Your healthcare provider may prescribe an antibiotic. This is to help prevent infection. Follow all instructions for taking this medicine. Take the medicine every day until it's gone or you are told to stop. You should not have any left over. The healthcare provider may prescribe medicines for pain. If no pain medicines were prescribed, you can use [id number] pain medicines. Follow instructions for taking any pain medicines. Talk with your healthcare provider before using these medicines if you have chronic liver or kidney disease, or ever had a stomach ulcer or digestive bleeding. Follow the healthcare provider's instructions on how to care for the cut. Keep the wound clean and dry. Don't get the wound wet until you are told it's OK to do so. If the area gets wet, gently pat it dry with a clean cloth. Replace the wet bandage with a dry one. If a bandage was applied and it becomes wet or dirty, replace it. Otherwise, leave it in place for the first 24 hours. Caring for stitches or dario: Once you no longer need to keep them dry, clean the wound daily. First, remove the bandage. Then wash the area gently with soap and clean running water, or as directed by the healthcare provider. Use a wet cotton swab to loosen and remove any blood or crust that forms. After cleaning, apply a thin layer of antibiotic ointment if advised. Then put on a new bandage unless you are told not to. Caring for skin glue: Don't put apply liquid, ointment, or cream on the wound while the glue is 8 General Instructions [facility] Emergency Department [address] [place] [address] Phone #: ext- [phone] 07/20/2020 01:59 Patient: NEVA GUILLAUME Sex: M : 2000 Age: [address] Don't do activities that cause heavy sweating. Protect the wound from sunlight. Don't scratch, rub, or pick at the adhesive film. Don't place tape directly over the film. The glue should peel off naturally within 5 to 10 days. Caring for surgical tape: Keep the area dry. If it gets wet, blot it dry with a clean towel. Surgical tape usually falls off within 7 to 10 days. If it has not fallen off after 10 days, you can take it off yourself. Put mineral oil or petroleum jelly on a cotton ball and gently rub the tape until it's removed. Once you can get the wound wet, you may shower as usual but don't soak the wound in water (no tub baths or swimming). Even with proper treatment, a wound infection may sometimes occur. Check the wound daily for signs of infection listed below.Scalp woundsDuring the first 2 days, you may carefully rinse your hair in the shower to remove blood, glass or dirtparticles. After 2 days, you may shower and shampoo your hair normally. Don't soak your scalp in thetub or go swimming until the stitches or dario have been removed. Talk with your healthcareprovider before applying any antibiotic ointment to the wound.Mouth woundsEat soft foods to reduce pain. If the cut is inside of your mouth, clean by rinsing after each meal andat bedtime with a mixture of equal parts water and hydrogen peroxide (don't swallow!). Or you canuse a cotton swab to directly apply hydrogen peroxide onto the cut. You may also be prescribed achlorhexidine solution to rinse with. Mouth wounds can be painful when eating. You may use [id number] local numbing solution for pain relief. If this is not available, you may use anynumbing solution inten ded for teething babies. You may apply this directly to the sores with acotton- tip swab or with your clean finger.Follow-up careFollow up with your healthcare provider as advised. Ask your healthcare provider how long stitchesshould be left in place. Be sure to return for stitch removal as directed. If dissolving stitches wereused in the mouth, these should fall out or dissolve without the need for removal. If tape closureswere used, remove them yourself when your provider recommends if they have not fallen off on theirown. If skin glue was used, the film will wear off by itself. Generally, you should keep healing woundsout of direct sunlight for the first couple of months to try to lessen scarring.When to seek medical adviceCall your healthcare provider right away if any of these occur: 9 General Instructions [facility] Emergency Department [address] [place] [address] Phone #: ext- [phone] 07/20/2020 01:59 Patient: NEVA GUILLAUME Sex: M : 2000 Age: 19y Signs of infection, including increasing pain in the wound, increasing wound redness or swelling, or pus or bad odor coming from the wound Fever of 100.4F (38.C) or higher , or as directed by your healthcare provider Stitches or dario come apart or fall out or surgical tape falls off before 7 days and the wound appears to be reopening Wound edges reopen Wound changes colors Numbness around the wound after any numbing medicine should have worn off Decreased movement around the injured areaCall 911Call 911 if you can't control the wound bleeding with direct pressure. [phone] [employer]. [address] [place] [address], [place] [address]. All rights reserved. This information is not intended as asubstitute for professional medical care. Always follow your healthcare professional's instructions. You have been given the following additional information: Animal Bite (General) Rabies Vaccine suspension for injection Laceration: All Closures(Electronically signed by Wu Rivera MD 07/20/2020 03:26) Name Value Range Interpretation Code Description Data Rashida rce(s) Supporting Document(s) ID Date Data Source [id number] 07/20/2020 01:59:00 AM EST [facility] 1 Clinical Report - Nurses [facility] Emergency Department [address] [place] [address] Phone #: ext- [phone] 07/20/2020 01:59 Patient: NEVA GUILLAUME Sex: M : 2000 Age: 19yTRIAGEArrived by private vehicle. Historian: patient. Accompanied by friend.Acuity: LEVEL 4.Chief Complaint: DOG BITE.Alert. No acute distress.Location of injuries: face and left hand. This occurred about 15 minutes ago. Circumstances: This rebecca "unprovoked" attack. ( Patient states he was walking his dog at night when another dog came up andattacked pt and his dog. Pt has laceration to left chin and mid chin. Pt also has laceration to left 4th digit.Bleeding is controlled at this time. Pt states unknown if dog was up to date on vaccines.).Treatment RECRUITMENT AND OUTREACH ASSISTANT:None. --02:07 07/20/20 Sonja Brannon R.NLong02:02 07/20/20. BP: 149/92. MAP: 111. HR: 88. RR: 19. O2 saturation: 100% on room air. Temp: 97.7 F.Pain level now: 8/10. --02:07 07/20/20 Sonja Brannon R.N.Weight: 85.7 kg stated. Height/Length: 67 inches Per Patient. BMI: 29.6. --02:03 07/20/20 Sonja Brannon R.N.MedicationsOmeprazole Oral. --02:05 07/20/20 Sonja Brannon R.N. Carafate Oral. --02:05 07/20/20 Sonja Brannon R.N.AllergiesNo Known Drug Allergy. --02:07/20/20 Sonja Brannon R.N.PROBLEMS:Abdominal Pain. --02:05 07/20/20 Sonja Brannon R.N.ADDITIONAL SURGERIES:Colonoscopy.Tonsillectomy.[place] teeth. --02:07/20/20 Sonja Brannon R.N.HistoryPAST MEDICAL HX: Tetanus status: up-to-date. Immunizations: up-to-date.SOCIAL HX: Smoker- current status unknown (vape). No alcohol use or drug use. He was offered HIVtesting but declined. Patient education was provided. He was offered hepatitis C testing but declined. 2 Clinical Report - Nurses [facility] Emergency Department [address] [place] [address] Phone #: ext- [phone] 07/20/2020 01:59 Patient: NEVA GUILLAUME Sex: M : 2000 Age: 19y Patient education was provided. ( COVID screen negative). He has not traveled outside the [place] Infectious disease exposure: No infectious disease exposure. Patient is not a known carrier of tuberculosis, hepatitis, HIV, MRSA or VRE. Patient is not a known carrier of CRE. SELF HARM ASSESSMENT: Self harm assessment was performed. The patient answered "no" to the question(s) "Have you recently felt down, depressed, or hopeless?", "Do you have thoughts of harming or killing yourself?", "Do you have a plan for harming or killing yourself?" and "Have you recently had thoughts about harming or killing others?". ABUSE ASSESSMENT: Abuse assessment. The patient had positive responses to the question(s) "Do you feel safe in your home?", "Are you afraid to go home?" and "Has anyone hurt you or threatened to hurt you?". Abuse denied. NUTRITIONAL RISK ASSESSMENT: The nutritional risk assessment revealed no deficiencies. FUNCTIONAL ASSESSMENT: Functional assessment: no impairments noted. LEARNING NEEDS ASSESSMENT: The learning needs assessment revealed no barriers. FALL RISK ASSESSMENT: Fall risk assessment completed. No risk factors identified. SKIN INTEGRITY ASSESSMENT: Skin integrity risk assessment completed. No skin integrity risk identified. --02:07/20/20 Sonja Brannon R.N. Interventions Identification band on patient. To treatment room. --02:07/20/20 Sonja Brannon R.N.PHYSICAL ASSESSMENTAmbulatory to room.GENERAL / NEURO / PSYCH: Alert. Oriented X 4. Appears in no acute distress. Appears anxious.HEENT: Pupils equal, round and reactive to light. Head non-tender. Head: subcutaneous laceration withcontrolled bleeding localized to the chin (2 lacerations to chin).RESPIRATORY: Respirations not labored. Breath sounds within normal limits.CVS: Normal heart rate and rhythm. Pulses within normal limits. Capillary refill less than 2 seconds.GI / : Abdomen soft and nontender.EXTREMITIES: Extremities exhibit normal ROM. Neuro-vascular status intact to the extremity. Lefthand: subcutaneous laceration with controlled bleeding (left 4th digit).SKIN: Skin is warm and dry. No signs or symptoms of infection. --02:07/20/20 Sonja Brannon R.N.NURSING PROGRESS NOTESReassurance given. Two patient identifiers checked. Call light placed in reach. Side rails up x 2. Bedplaced in lowest position. Brakes of bed on. --02:07/20/20 Sonja Brannon R.N. 03:12 07/20/2020 Augmentin (Amoxicillin-Pot Clavulanate) PO 875 mg given. Allergies verified and 3 Clinical Report - Nurses [facility] Emergency Department [address] [place] [address] Phone #: ext- [phone] 07/20/2020 01:59 Patient: NEVA GUILLAUME Sex: M : 2000 Age: 19y confirmed 5 rights. Information reviewed with patient. Verbalizes understanding. --03:12 07/20/20 Sonja Brannon R.N. 03:13 07/20/2020 Bacitracin Zinc Topical 1 application given. Allergies verified and confirmed 5 rights. Information reviewed with patient. Verbalizes understanding. (chin and left 4th digit). --03:13 07/20/20 Sonja Brannon R.N. Wound irrigated with 1000 mL sterile NS using a 10 mL syringe; patient tolerated procedure well. WOUND REPAIR: Wound repair performed by ED physician. Assisted by one nurse. The wound is located on the (chin). Preparation: suture tray set-up with lidocaine. Wound cleansed per nurse with sterile saline and irrigated per physician with 1000 mL sterile saline using a syringe. Procedure: wound repaired with sutures. Post-procedure: he was stable, no complications, bleeding controlled, dressing applied and wound care instructions given. Patient tolerated the procedure well. Total time of assist / procedure: 30 minutes. --03:15 07/20/20 Sonja Brannon R.N.DISPOSITION / DISCHARGE No learning barriers present. Discharge instructions provided and reviewed with the patient. Reviewed warnings. Reviewed medication(s) side effects, precautions, dosing and course information. Prescription(s) given to the patient and sent electronically to pharmacy. Medication(s) for home use given to the patient per protocol. Treatments reviewed. Reviewed referrals. Patient verbalized understanding. Written instructions provided in [place]. ( Pt provided with suture care instructions). The patient was discharged home and accompanied by patent leather sorter. He left ambulatory and via private vehicle. Digital Recruiter driving. --03:19 07/20/20 Sonja Brannon R.N. 03:19 07/20/20. BP: 145/87. MAP: 106. HR: 86. RR: 17. O2 saturation: 99% on room air. Temp: 97.9 F. Pain level now: 09/16. --03:20 07/20/20 Sonja Brannon R.N.Locked/Released at 07/20/2020 03:20 by Sonja Brannon R.N. Name Value Range Interpretation Code Description Data Rashida rce(s) Supporting Document(s) ID Date Data Source [id number] 07/20/2020 01:59:00 AM EST [facility] 1 Clinical Report - Physicians/Mid Levels [facility] Emergency Department [address] [place] [address] Phone #: ext- [phone] 07/20/2020 01:59 Patient: NEVA GUILLAUME Sex: M : 2000 Age: 19y Arrived- By private vehicle. Historian- patient. Disposition decision: 03:07 07/20/2020.HISTORY OF PRESENT ILLNESS Chief Complaint: DOG BITE. Location of injuries- face and left hand. The injury occurred just prior to arrival. Occurred at home. This was an "unprovoked" attack. No skin rash, dizziness, itching, fainting episodes or difficulty breathing. He has not had swelling, drainage or trouble swallowing. Treatment RECRUITMENT AND OUTREACH ASSISTANT- symptoms better after treatment. (hydrogen peroxide).REVIEW OF SYSTEMSNo swelling, numbness, headache, difficulty breathing or weakness. No tingling, chest pain or pain,nausea or fever. No joint pain, abdominal pain or pain, vomiting or chills. No chills, fever, photophobia,ear pain or nasal congestion. No sore throat, cough, constipation, diarrhea or nausea. No vomiting,urinary frequency, hematuria, back pain or headache. No easy bruising or difficulty with urination. Thepatient sustained skin laceration.PAST HISTORYSee nurses notes. Tetanus immunization status is up-to-date. Additional Surgeries: Colonoscopy. Tonsillectomy. [place] teeth. Medications: Carafate Oral. Omeprazole Oral. Allergies: No Known Drug Allergy.SOCIAL HISTORYNo drug use.ADDITIONAL NOTESThe nursing notes have been reviewed.PHYSICAL EXAMVital Signs: 07/20/2020 02:02 BP: 149/92. MAP: 111. HR: 88. RR: 19. O2 saturation: 100% on room air. 2 Clinical Report - Physicians/Mid Levels [facility] Emergency Department [address] [place] [address] Phone #: ext- [phone] 07/20/2020 01:59 Patient: NEVA GUILLAUME Sex: M : 2000 Age: 19y Temp: 97.7 F. Pain level now: 02/16. Have been reviewed and appear to be correct. Hypertensive. Mean arterial pressure- high. Heart rate normal. Respiratory rate normal. Temperature normal. Oxygen saturation normal. Appearance: Alert. Oriented X3. No acute distress. Head: Left cheek: 2.5 cm laceration. Chin: 2.0 cm laceration. Eyes: Eyes normal inspection. ENT: Ears normal on inspection. Nose normal on inspection. Mouth normal on inspection. Neck: Normal inspection. Neck non-tender. Painless ROM. CVS: Heart sounds normal. Pulses normal. Respiratory: Chest normal on inspection. Painless inspiration. Breath sounds normal. Chest nontender. Abdomen: Normal inspection. Soft and nontender. Bowel sounds normal. Back: Normal inspection. No tenderness. ROM normal. Skin: Skin warm and dry. Normal skin color. Normal skin turgor. Extremities: Normal inspection. Left ring finger: 1.0 cm laceration. Pelvis stable. No lower extremity edema. Neuro: Oriented X 3. No motor deficit. No sensory deficit.PROGRESS AND PROCEDURESLaceration Repair: Location: face and left cheek. Length: 2.5 cm. Complexity: complex (requiringalignment of multiple flaps).Wound depth/shape- subcutaneous. Distal neuro/vascular/tendon status normal. Local anesthesiaprovided using 1% lidocaine with epi. Wound explored, cleansed, irrigated and examined to the base inbloodless field extensively with normal saline. Closure of skin: interrupted 5-0 Prolene (7 sutures).Subcutaneous closure: interrupted 5-0 Vicryl (5 sutures). Post-procedure: he is stable and there are nocomplications. Bleeding is controlled and neuro-vascular status is intact distal to the wound. Tetanusimmunization up-to-date.Laceration Repair #2: Location: chin. Length: 2.0 cm. Distal neuro/vascular/tendon status normal.Local anesthesia provided using 1% lidocaine with epi. Wound explored, cleansed and irrigatedextensively with normal saline. Closure of skin: interrupted 5-0 Prolene (4 sutures). Post-procedure: heis stable and there are no complications. Bleeding is controlled and neuro-vascular status is intact distal tothe wound. Tetanus immunization up-to-date.Laceration Repair #3: Location: left hand. Length: 1 cm. Complexity: simple (local anesthesia used).Distal neuro/vascular/tendon status normal. Local anesthesia provided using 1% lidocaine with epi.Wound explored, cleansed, irrigated and examined to the base in bloodless field extensively with normalsaline. Closure of skin: 5-0 Prolene (1 sutures). Post-procedure: he is stable and there are nocomplications. Bleeding is controlled and neuro-vascular status is intact distal to the wound. Tetanusimmunization up-to-date. Course of Care: pt is a 19 year old male who presented after a dog bite. he was walking his dog and [place] his dog. he sustained 3 lacerations which were repaired. pt tolerated procedure well. no complications. pt given 1st dose of antibiotics. a rx for Augmentin was given to him. I informed him that it would scar. he was not worried. I informed him that if he is worried about the scar, he can always have it revised by a plastic surgeon. I encouraged him to 3 Clinical Report - Physicians/Mid Levels [facility] Emergency Department [address] [place] [address] Phone #: ext- [phone] 07/20/2020 01:59 Patient: NEVA GUILLAUME Sex: M : 2000 Age: 19y apply vit e oil and sunscreen for 2 years daily after sutures come out. pt given instructions and warning regarding infection and the need to return. [facility] dispatched was notified and they will call the health dept in the morning to notify them. alissa morin filled out necessary paperwork. Patient/family counseled. Disposition: Discharged. Condition: good and stable.CLINICAL IMPRESSION Multiple deep dog bites to the chin and left cheek area. Multiple lacerations to the left cheek area.INSTRUCTIONS (Take tylenol and motrin for pain. Take the augmentin to help prevent infection. return if worse or any symptoms that may be associated with infection including redness, swelling, pus coming out of the wound, fever or chills. Please follow up with your doctor or come back to the ED for suture removal in 1 week. apply antibiotic ointment over the wound twice a day for 1 week. after the sutures come out, apply vitamin e oil and sunscreen to the healed wounds daily to help prevent scaring. do this for 2 years daily. The ED or animal control/public health will contact you regarding the possible need for rabies vaccine.). Warnings: INFECTION: Watch for signs of infection (increasing heat and redness, pus-like drainage, swelling, or increased pain). Return or see your doctor if these signs occur. GENERAL WARNINGS: Return or contact your physician immediately if your condition worsens or changes unexpectedly, if not improving as expected, or if other problems arise. Your Current Medications: Your current home medications have been reviewed. CONTINUE TAKING THE FOLLOWING MEDICATIONS: Carafate Oral. Omeprazole Oral. Prescription Medications: Augmentin 875 mg-125 mg tablet Take 1 tablet twice a day -- Dispense 20 tablet. Refills: 0. Substitution permitted. Pharmacy - [facility] [address] ; [place] [address]. . Follow- up: Follow up with your doctor in one week for suture removal and wound check. Call for an appointment. Reason for referral: evaluation. Summary of care prov ided to patient via paper. 4 Clinical Report - Physicians/Mid Levels [facility] Emergency Department [address] [place] [address] Phone #: ext- [phone] 07/20/2020 01:59 Patient: NEVA GUILLAUME Sex: M : 2000 Age: 19y Understanding of the discharge instructions verbalized by patient.(Electronically signed by Wu Rivera MD 07/20/2020 03:26) Name Value Range Interpretation Code Description Data Rashida rce(s) Supporting Document(s) ID Date Data Source [id number] 05/18/2020 10:33:00 AM EST [facility] ([facility]) Name Value Range Interpretation Code Description Data [facility] Supporting Document(s) [facility] pathology study [facility] [facility] FINAL DIAGNOSIS Colon, random, biopsies: Colonic mucosa with no specific changes. No evidence for microscopic colitis. 05/20/2020729 CLINICAL DIAGNOSIS Abdominal pain, heartburn, diarrhea 05/18/20201437 GROSS DIAGNOSIS Received in formalin labeled "random colon biopsies" is one fragment of stinson tissue 0.2 x 0.2 x 0.2 cm. All in one. -SV 05/18/20201437 Signed RACHELL GARCIA MD 05/20/2020 1405 ID Date Data Source [id number] 07/22/2019 09:30:00 [place] [address] PHONE: [phone] FAX: [phone] Name .................. : MARKELL RIOJAS Acct Number.................. : [id number] ROOM. ................. : -1A MR Number ................... : [id number] Stay type ............. : E/R Discharge Date......... ... : 07/17/19 Admit Date ......... : 07/17/19 Admit Phys .................... : BLACK CHRI Date of ....... : 2000 Family Phys ................... : UNKNOWN Phone .................. : [phone] Age ................................ : 18 Film# .................. .:[id number] Sex ................................. : M Unsigned transcriptions are preliminary reports and do not represent a medical or legal document CT ABD & PELVIS W/ IV ONLY [id number] COMPLETE:07/17/19 18:57 [facility] [id number] Reason(s): Abdominal Pain CT OF THE ABDOMEN AND PELVIS WITH CONTRAST: HISTORY: Abdominal pain. TECHNIQUE: The examination is performed following the administration of 75 cc of Isovue 370. FINDINGS: There is gastric distention. The liver, spleen and pancreas are normal in size and density. No masses are seen. There are minimally dilated loops of small bowel in the left upper quadrant. The large bowel is normal. The terminal ileum is normal. The kidneys demonstrate no evidence for masses or obstruction. No lymphadenopathy is seen. No ascites is noted. IMPRESSION: Gastric distention. Several mildly dilated loops of small bowel in the left upper quadrant, which are nonspecific. To assess for possible inflammatory bowel disease, CT angiography would be helpful. While performing the above CT examination, radiation dose reduction was accomplished utilizing automated exposure control, adjusting of the mA and kV based on the patient's body size and/or the use of imperative reconstructive techniques. CT dose: 984.5 mGycm Contrast agent in mL: 75 Isovue 370 Page 1 of 2 [facility] [address] [place] [address] PHONE: [phone] FAX: [phone] Name .................. : MARKELL RIOJAS Acct Number.................. : [id number] ROOM. ................. : -1A MR Number ................... : [id number] Stay type ............. : E/R Discharge Date......... ... : 07/17/19 Admit Date ......... : 07/17/19 Admit Phys .................... : BLACK CHRI Date of ....... : 2000 Family Phys ................... : UNKNOWN Phone .................. : [phone] Age ................................ : 18 Film# .................. .:[id number] Sex ................................. : M Unsigned transcriptions are preliminary reports and do not represent a medical or legal document CT ABD & PELVIS W/ IV ONLY [id number] COMPLETE:07/17/19 18:57 [facility] [id number] Reason(s): Abdominal Pain Method of administration: Intravenous Electronically Reviewed and Signed By Fuentes Mcmahan MD , 07/22/19 09:30, MRA Transcribe Initials: DZ , Transcribe Date: 07/20/19 07:34, Dictation Date: Copy for: REKHA CARRASCO via fax Copy for: EMERGENCY DEPT via modem Copy for: 710 MED REC DISCHARGED Page 2 of 2 Name Value Range Interpretation Code Description Data Rashida rce(s) Supporting Document(s) ID Date Data Source [id number] 07/17/2019 06:11:00 PM EST [facility] 1 OrderSheet [facility] Emergency Department [address] [place] [address] Phone #: ext- [phone] 07/17/2019 18:00 Patient: NEVA GUILLAUME Sex: M : 2000 Age: 18yWEIGHT:95.2 kg (S) HEIGHT:67 inches (S) BMI:32.9ALLERGIES: No Known Drug AllergyCHIEF COMPLAINT: vomiting, diarrhea, abdominal pain, nauseaDIAGNOSIS: Abdominal painLAB ORDERSOrder Description Priority Entered Acknowledged InitialedCBC w Diff STAT 18:07/17/2019 18:31 Sanjay Mclaughlin R.N.;CMP STAT 18:23 07/17/2019 18:31 Sanjay Mclaughlin R.N.;Lipase STAT 18:07/17/2019 18:31 Sanjay Mclaughlin R.N.;Urinalysis (Clean STAT 18:23 07/17/2019 18:31 Anabela Mclaughlin R.N.;DIAGNOSTIC STUDY ORDERSOrder Description Priority Entered Acknowledged InitialedCT Abd PEL W/ IV STAT 18:23 07/17/2019 18:31 Arnoldo,Jeanette Only Sanjay Cote R.N.(Oxygen?(No)) JUANITA;(IV?(Yes)) Reason for Study: Abdominal PainMEDICATION/IV/DRIP/FLUID ORDERSOrder Description Priority Entered Acknowledged InitialedNS IV : Bolus 1000 18:23 07/17/2019 18:57 Arnoldo,mL, then 150 mL/hr Sanjay GRANT;Zofran ODT PO 8 18:23 07/17/2019 18:34 Arnoldo,mg Sanjay GRANT;GENERAL ORDERS 2 OrderSheet [facility] Emergency Department [address] [place] [address] Phone #: ext- [phone] 07/17/2019 18:00 Patient: NEVA GUILLAUME Sex: M : 2000 Age: 18yOrder Description Priority Entered Acknowledged InitialedNPO 18:23 07/17/2019 18:31 Sanjay Mclaughlin R.N.;Saline Lock 18:07/17/2019 18:31 Sanjay Mclaughlin R.N.;[Electronically signed by Kera Mclaughlin R.N. (19:19 07/17/2019)][Electronically signed by Sanjay Hartman (20:35 07/17/2019)][Electronically locked by Kera Mclaughlin R.N. (19:19 07/17/2019)] Name Value Range Interpretation Code Description Data Rashida rce(s) Supporting Document(s) ID Date Data Source [id number] 07/17/2019 06:11:00 PM EST [facility] 1 Medication Reconciliation Report [facility] Emergency Department [address] [place] [address] Phone #: ext- [phone] 07/17/2019 18:00 Patient: NEVA GUILLAUME Sex: M : 2000 Age: 18yWeight: 95.2 kgHeight/Length: 67 in.BMI: 32.9ALLERGIES: No Known Drug AllergyThe patient's Home Medications are listed below:NONE.The source(s) of the original Home Medication information:Not obtained.The following Medications were given to the patient in the Emergency Department:Zofran ODT [PO] PO 8 mg, administered: 07/17/2019 6:34:00 PMNS [IV] IV Fluids bolus 1000 mL wide open, administered: 07/17/2019 6:57:00 PMThe following Medications were prescribed to the patient:None. Name Value Range Interpretation Code Description Data Rashida rce(s) Supporting Document(s) ID Date Data Source [id number] 07/17/2019 06:11:00 PM [facility] 1 Medication Administration Record [facility] Emergency Department [address] [place] [address] Phone #: ext- [phone] 07/17/2019 18:00 Patient: NEVA GUILLAUME Sex: M : 2000 Age: 18yWeight: 95.2 kgHeight/Length: 67 inBMI: 32.9ALLERGIES: No Known Drug Allergy Date/Time Medication Administered Medication OrderedStart NS [IV] NS IV : Bolus 1000 mL, then 61822:57 07/17/2019 Dose: IV Fluids mL/Kera Carcamo R.N. Bolus: 1000 mL wide open---- Dispensed: 1000 mL bagStop Site: #1 left AC19:14 07/17/2019Kera Sauceda R.N.Given ZOFRAN ODT [PO] (ONDANSETRON Zofran ODT PO 8 mg18:34 07/17/2019 HCL)Kera Mclaughlin R.N. 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 tomorrow. Reason for referral:evaluation and treatment. Summary of care provided to patient.Understanding of the discharge instructions verbalized by patient. ADDITIONAL INFORMATIONUnknown Causes of Abdominal Pain (Male)Based on your visit today, the exact cause of your abdominal pain is not clear. Your exam and testsdon't suggest a dangerous cause at this time. However, the signs of a serious problem may takemore time to appear. Although your evaluation was reassuring today, sometimes early in the courseof many conditions, exam and lab tests can appear normal. Therefore, it is important for you to watchfor any new symptoms or worsening of your condition.It may not be obvious what caused your symptoms. Pay attention to things that do seem to makeyour symptoms worse or better and discuss this with your doctor when you follow up.The evaluation of abdominal pain in the emergency department may only require an exam by thedoctor or it may include blood, urine or imaging studies, depending on many factors. Sometimesexams and tests can identify a cause but in many cases, a clear cause is not found. Further testing atfollow up visits may help to suggest a clear diagnosis.Home care Rest as much as you can until your next exam. Try to avoid any medicines (unless otherwise directed by your doctor), foods, activities, or other factors that may have contributed to your symptoms. Try to eat foods that you know that you have tolerated well in the past. Certain diets may be 2 General Instructions [facility] Emergency Department [address] [place] [address] Phone #: ext- [phone] 07/17/2019 18:00 Patient: NEVA GUILLAUME Sex: M : 2000 Age: 18y recommended for some conditions that cause abdominal pain. However, since the cause of your symptoms may not be clear, discuss your diet more with your healthcare provider or specialist for further recommendations. If you have diarrhea, it may help to avoid dairy (lactose) for the time being. A low fat, low fiber diet can also help. Eating several small meals per day as opposed to 2 or 3 larger meals may help. Avoid dehydration. Make sure to drink plenty of water. Other options include broth, soup, gelatin, sports drinks, or other clear liquids. Watch closely for anything that may make your symptoms worse or better. Pay close attention to symptoms below that may mean your condition is getting worse.Follow-up careFollow up with your healthcare provider if your symptoms are not improving, or as advised. In somecases, you may need more testing.When to seek medical adviceCall your healthcare provider right away if any of these occur: Pain is becoming worse You are unable to take your medicines or can't keep water down due to excessive vomiting Swelling of the abdomen Fever of 100.4F (38C) or higher, or as directed by your healthcare provider Blood in vomit or bowel movements (dark red or black color) Jaundice (yellow color of eyes and skin) New onset of weakness, dizziness or fainting New onset of chest, arm, back, neck or jaw pain [id number] [employer] outdoors. [address] [place] [address] 52013. All rights reserved. This information is not intended as asubstitute for professional medical care. Always follow your healthcare professional's instructions. You have been given the following additional information: Unknown Causes of Abdominal Pain (Male) 3 General Instructions [facility] Emergency Department [address] [place] [address] Phone #: ext- [phone] 07/17/2019 18:00 Patient: NEVA GUILLAUME Sex: M : 2000 Age: 18y(Electronically signed by JUANITA Fowler 07/17/2019 20:35) Name Value Range Interpretation Code Description Data Rashida rce(s) Supporting Document(s) ID Date Data Source [id number] 07/17/2019 06:11:00 PM [facility] 1 Clinical Report - Nurses [facility] Emergency Department [address] [place] [address] Phone #: ext- [phone] 07/17/2019 18:00 Patient: NEVA GUILLAUME Sex: M : 2000 Age: 18yTRIAGEHistorian: patient.Triage time: 18:02 07/17/2019. Acuity: LEVEL 3.Chief Complaint: ABDOMINAL PAIN, NAUSEA, VOMITING and DIARRHEA.Alert. No acute distress.( pt c/o abd pain while sleeping, vomiting in the morning for past 3 wks, diarrhea for the past two wks. pteating gummy worms in triage. pt states vomiting around 12:40. pt seen at [facility] after [place], dx withfood poisoning, given antinausea meds, did not fill rx.).SEPSIS SCREEN: NEGATIVE. --18:07 07/17/19October, R.N.18:02 07/17/19. BP: 108/75. MAP: 86. HR: 77. RR: 16. O2 saturation: 97%. Temp: 97.3 F. Pain level now:0/10. --18:07 07/17/19, October, R.N.Weight: 95.2 kg stated. Height/Length: 67 inches Per Patient. BMI: 32.9. --18:02 07/17/19, October, R.N.MedicationsNone. --18:04 07/17/19October, R.N.AllergiesNo Known Drug Allergy. --18:04 07/17/19, October, R.N.PROBLEMS:no known problems.ADDITIONAL SURGERIES:Tonsillectomy. --18:04 07/17/19 Leyla, October, R.N.HistorySOCIAL HX: Smoker- current status unknown (vape). No alcohol use or drug use. He was offered HIVtesting but declined. He has not traveled outside the [place]Infectious disease exposure: No infectious disease exposure. Patient is not a known carrier of tuberculosis,hepatitis, HIV, MRSA or VRE. Patient is not a known carrier of CRE.SELF HARM ASSESSMENT: Self harm assessment was performed. The patient answered "no" to thequestion(s) "Have you recently felt down, depressed, or hopeless?", "Do you have thoughts of harming orkilling yourself?", "Do you have a plan for harming or killing yourself?", "Have you recently had thoughtsabout harming or killing others?", "Do you have any dangerous items in your possession?", "Have younoticed less interest or pleasure in doing things?", "Are you here because you tried to hurt yourself?" and 2 Clinical Report - Nurses [facility] Emergency Department [address] [place] [address] Phone #: ext- [phone] 07/17/2019 18:00 Patient: NEVA GUILLAUME Sex: M : 2000 Age: 18y "Have you ever tried to hurt yourself before today?". ABUSE ASSESSMENT: Abuse assessment. yes. The patient had positive responses to the question(s) "Do you feel safe in your home?". No report of abuse. NUTRITIONAL RISK ASSESSMENT: The nutritional risk assessment revealed no deficiencies. FUNCTIONAL ASSESSMENT: Functional assessment: no impairments noted. LEARNING NEEDS ASSESSMENT: The learning needs assessment revealed no barriers. FALL RISK ASSESSMENT: Fall risk assessment completed. No risk factors identified. SKIN INTEGRITY ASSESSMENT: Skin integrity risk assessment completed. No skin integrity risk identified. --18:07 07/17/19 Lyndsey Avina R.N. Interventions To treatment room. --18:07 07/17/19 Lyndsey Avina R.N.NURSING PROGRESS NOTESReassurance given. Bed placed in lowest position. Brakes of bed on. Patient ready for evaluation- EDphysician and PA notified. --18:07 07/17/19 Lyndsey Avina R.N. Patient ID band checked for patient name and birthdate: patient confirmed. Instructions provided to collect clean catch urine and patient verbalized understanding. Clean catch urine collected; sample sent to lab for urinalysis. Specimen labeled in the presence of the patient. --18:31 07/17/19 Kera Mclaughlin R.N. 18:30 07/17/2019 Site #1 started via IV in the left antecubital space with an 20g angiocath, with aseptic technique and good blood return; one attempt. Blood drawn: rainbow set. Labeled in the presence of the patient and sent to the lab. Saline lock flushed with 10 mL saline. --18:31 07/17/19 Kera Mclaughlin R.N. 18:34 07/17/2019 Zofran ODT (Ondansetron HCl) PO Oral Disintegrating Tablets 8 mg given. Allergies verified and confirmed 5 rights. Information reviewed with patient including reason for taking this medication, signs of allergic reaction and precautions. Verbalizes understanding. --18:34 07/17/19 Kera Mclaughlin R.N. Patient transported to [place] by wheelchair with tech. --18:35 07/17/19 Kera Mclaughlin R.N. Patient returned from [place] by wheelchair with tech. --18:45 07/17/19 Kera Mclaughlin R.N. 18:57 07/17/2019 Started bag #1 1000 mL IV Fluids NS; bolus of 1000 mL wide open via site #1 via IV pump. Allergies verified and confirmed 5 rights. IV patency established. IV site checked: no pain, redness, or swelling. IV flushed thoroughly pre- and post- medication administration. Information reviewed with patient and spouse including reason for taking this medication, signs of allergic reaction and precautions. 3 Clinical Report - Nurses [facility] Emergency Department [address] [place] [address] Phone #: ext- [phone] 07/17/2019 18:00 Patient: NEVA GUILLAUME Sex: M : 2000 Age: 18y Verbalizes understanding. --18:57 07/17/19 Kera Mclaughlin R.N. 18:58 07/17/19. BP: 115/64. MAP: 81. HR: 69. RR: 18. O2 saturation: 98% on room air. Pain level now: 0/10. --18:58 07/17/19 Kera Mclaughlin R.N. The patient is sleeping. Overall patient status is improved- he states feels better. ( Pt sleeping upon entering room, easily woken. NAD). --18:58 07/17/19 Kera Mclaughlin R.N. 18:58 07/17/2019 Zofran ODT PO Response: no adverse reaction symptoms have improved the patient feels better. --18:58 07/17/19 Kera Mclaughlin R.N. 19:08 07/17/19. Care transferred and report received. --19:08 07/17/19 Kera Johnson R.N.DISPOSITION / DISCHARGE 19:13 07/17/19. BP: 135/64. MAP: 87. HR: 68. RR: 16. O2 saturation: 100% on room air. Temp: 97.2 F (oral). Pain level now: 08/19. --19:14 07/17/19 Kera Johnson R.N. 19:14 07/17/2019 Site #1 removed upon discharge. Bandage applied. --19:14 07/17/19 Kera Johnson R.N. 19:14 07/17/2019 IV Fluids NS via IV site #1 Discontinued: bag #1 discontinued. Total amount infused: 50 mL. IV patency established. IV site checked: no pain, redness, or swelling. IV flushed thoroughly. --19:14 07/17/19 Kera Johnson R.N. Departure time: late entry - 19:13 07/17/2019. Condition at departure: stable. No learning barriers present. Discharge instructions provided and reviewed with the patient and spouse. Reviewed warnings (please see paper copy). Reviewed medication(s) (Please pick up driver previously prescribed nausea medication). Patient and spouse verbalized understanding. Written instructions provided in [place] Islander. 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 He was discharged home and accompanied by spouse. He left ambulatory and via private vehicle. Spouse driving. --19:19 07/17/19 Kera Mclaughlin R.N.Locked/Released at 07/17/2019 19:19 by Kera Mclaughlin R.N. Name Value Range Interpretation Code Description Data Rashida rce(s) Supporting Document(s) ID Date Data Source [id number] 07/17/2019 06:11:00 PM [facility] 1 Clinical Report - Physicians/Mid Levels [facility] Emergency Department [address] [place] [address] Phone #: ext- [phone] 07/17/2019 18:00 Patient: NEVA GUILLAUME Sex: M : 2000 Age: 18y Time Seen: 18:02 07/17/2019. Arrived- By private vehicle. Historian- patient.HISTORY OF PRESENT ILLNESS Chief Complaint: VOMITING and DIARRHEA. ABDOMINAL PAIN and NAUSEA. No recent travel. He has had nausea, vomiting, diarrhea and abdominal pain. No black stools, bloody stools, flank pain, history of possible bad food exposure or known contact with a sick individual. No change in routine. Has not recently been camping or on antibiotics. Last bowel movement: today. This started 3 weeks ago; pt c/o abd pain while sleeping, vomiting in the morning for past 3 wks, diarrhea for the past two wks. pt eating gummy worms in triage. pt states vomiting around 12:40. pt seen at [facility] after [place], dx with food poisoning, given antinausea meds, did not fill rx. and is now gone. It was abrupt in onset and has been intermittent. The illness is described as mild. (pt's spouse reports that his mother made them come because their family has a history of kidney stones.). Similar symptoms previously. Patient has had similar symptoms several times. Re cent medical care: The patient was seen recently at another facility in the emergency department.REVIEW OF SYSTEMSNo fever, muscle aches, difficulty with urination, dark urine or headache. No dizziness, sore throat, cough,chest pain or difficulty breathing. No excessive urination, skin rash, jaundice, back pain or faintingepisodes. No blurred vision.PAST HISTORYProblems:no known problems. Additional Surgeries: Tonsillectomy. Medications: None. 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 No alcohol use or drug use. 2 Clinical Report - Physicians/Mid Levels [facility] Emergency Department [address] [place] [address] Phone #: ext- [phone] 07/17/2019 18:00 Patient: NEVA GUILLAUME Sex: M : 2000 Age: 18yPHYSICAL EXAMVital Signs: 07/17/2019 18:02 BP: 108/75. MAP: 86. HR: 77. RR: 16. O2 saturation: 97%. Temp: 97.3 F.Pain level now: 0/10. Have been reviewed as normal. Oxygen saturation normal.Appearance: Alert. Oriented X3. No acute distress.Eyes: Pupils equal, round and reactive to light. Eyes normal inspection.ENT: Ears normal. Nose normal. Pharynx normal.Neck: Normal inspection. Neck supple.CVS: Normal heart rate and rhythm. Heart sounds normal.Respiratory: No respiratory distress. Breath sounds normal.Abdomen: Soft. Mild tenderness in the epigastric area. No guarding or rebound tenderness. Bowelsounds normal. No organomegaly. No mass.Back: No CVA tenderness.Skin: Skin warm and dry. Normal skin color. No rash. Normal skin turgor.Extremities: Extremities exhibit normal ROM. No lower extremity edema.Neuro: Oriented X 3.LABS, X-RAYS, AND EKGCT Abdomen - Pelvis: Normal study. debris in stomach "gummy worms" eating while in triage. Studytype: upper abdomen; lower abdomen; pelvis. Abdomen - pelvic CT performed with IV contrast.Interpretation time: 19: 09 07/17/2019.Laboratory Tests: Laboratory tests have been ordered, with results reviewed and considered in themedical decision making process. CBC w Diff: (TANIA: 07/17/2019 18:28) ( MsgRcvd 07/17/2019 18:34) Final results Test Result Flag Units (Reference) CBC W/AUTOMATED DIFF COMPLETE BLOOD COUNT WBC 10.4 10/uL (4.2 - 11.0) RBC 5.28 10/uL (4.50 - 6.30) HEMOGLOBIN 15.3 g/dL (14.0 - 16.0) HEMATOCRIT 46.0 % (41.0 - 51.0) MCV 87.1 fL (80.0 - 94.0) MCH 29.0 pg (27.0 - 34.0) MCHC 33.3 g/dL (31.0 - 36.0) RDW 12.5 % (11.5 - 14.8) PLATELETS 291 10/uL (150 - 450) MPV 9.5 fL (7.4 - 10.4) NEUT 67.7 % (37.0 - 80.0) LYMPH 21.8 L % (25.0 - 40.0) MONO 9.1 H % (3.0 - 8.0) EOS 0.6 % (0.0 - 7.0) BASO 0.3 % (0.0 - 2.0) %IG 0.5 H % (0.0 - 0.0) %NRBC 0.0 % (0.0 - 0.0) #NEUT 7.06 H 10/uL (2.00 - 6.90) #LYMPH 2.27 10/uL (0.60 - 3.40) #MONO 0.95 H 10/uL (0.00 - 0.90) #EOS 0.06 10/uL (0.00 - 0.70) #BASO 0.03 10/uL (0.00 - 0.20) #IG 0.05 10/uL (0.00 - 0.10) #NRBC 0.00 10/uL (0.00 - 0.00) MANUAL DIFF NOT INDICATED RBC MORPH NOT INDICATED CMP: (TANIA: 07/17/2019 18:28) ( MsgRcvd 0 07/17/2019 19:03) Final results 3 Clinical Report - Physicians/Mid Levels [facility] Emergency Department [address] [place] [address] Phone #: ext- [phone] 07/17/2019 18:00 [id number]: [facility] : 2000 Age: 18y Test Result Flag Units (Reference) COMPREHENSIVE METABOLIC PANEL COMPREHENSIVE METABOLIC PANEL SODIUM 139 mEq/L (134 - 153) POTASSIUM 4.4 mEq/L (3.6 - 5.0) CHLORIDE 100 mEq/L (98 - 107) CO2 29 MEQ/L (22 - 30) GLUCOSE 73 MG/DL (65 - 110) BUN 17 MG/DL (7 - 21) CREATININE 1.2 MG/DL (0.7 - 1.5) BUN/CREAT 14 (8 - 27) TOTAL PROTEIN 7.8 G/DL (6.3 - 8.2) ALBUMIN 4.6 G/DL (3.9 - 5.0) GLOBULIN 3.2 GM/DL (2.4 - 3.2) A/G RATIO 1.4 (0.8 - 2.0) CALCIUM 9.8 MG/DL (8.4 - 10.2) TOTAL BILI <0.7 MG/DL (0.2 - 1.3) ALKALINE PHOS 81 U/L (38 - 126) SGOT/AST 41 H U/L (5 - 40) SGPT/ALT 65 H U/L (7 - 56) ANION GAP 10.0 mmol/L (8.0 - 16.0) AGE 18 yrs NON-AA GFR >60 mL/min AFR AMER GFR >60 mL/min Male GFR Interprentation 20-49 yrs >60 mL/min Normal 50-59 yrs >56 mL/min Normal 60-69 yrs >49 mL/min Normal 70-79yrs >42 mL/min Normal 80 and above >35 mL/min Normal Female GFR Interpretation 20-39 yrs >60 mL/min Normal 40-49 yrs >58 mL/min Normal 50-59 yrs >51 mL/min Normal 60-69 yrs >45 mL/min Normal 70-79 yrs >39 mL/min Normal 80 and above >32 mL/min Normal Lipase: (TANIA: 07/17/2019 18:28) ( MsgRcvd 07/17/2019 18:59) Final results Test Result Flag Units (Reference) LIPASE 30 U/L (13 - 60) Urinalysis: (TANIA: 07/17/2019 18:23) ( MsgRcvd 07/17/2019 18:36) Final results Test Result Flag Units (Reference) URINALYSIS URINALYSIS SOURCE R COLOR yellow (NORMAL: Yello CLARITY clear (NORMAL: Clear SPEC GRAVITY 1.020 (1.001 - 1.030 pH 6.5 (5 - 9) GLUCOSE NORM (NORMAL: Negat BILIRUBIN NEG (NORMAL: Negat KETONE 15 A (NORMAL: Negat PROTEIN 15 (NORMAL: Negat NITRITE NEG (NORMAL: Negat BLOOD NEG (NORMAL: Negat LEUK EST NEG (NORMAL: Negat UROBILINOGEN NOR (less than 1.0 MICROSCOPIC See Below WBC 0 - 1 (NORMAL: NONE CT Abd PEL W/ IV Contrast Only: (TANIA: 07/17/2019 18:23) ( MsgRcvd 07/17/2019 18:57) In Progress CT ABD Reason(s): Abdominal Pain TRANSPORTATION: IV? IV?(Yes) O2? Oxygen?(No) Ro. 4 Clinical Report - Physicians/Mid Levels [facility] [place] [address] Phone #: ext- [phone] 07/17/2019 18:00 Patient: NEVA GUILLAUME Sex: M : 2000 Age: 18yPROGRESS AND PROCEDURESCourse of Care: 19:09 Jul 17 2019. Evaluation after observation. (Discussed exam, lab, and CT findingsand pt is agreeable with dx and tx plan. Follow up with BN PA for referral to GI if symptoms persist.). Patient and spouse counseled in person regarding the patient's stable condition, test results, diagnosis and need for follow-up. Patient and spouse agrees with plan of care. 19:Jul 17 2019. 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 Follow-up: Follow up with your doctor refer to Gastroenterology if symptoms persist. tomorrow. Reason for referral: evaluation and treatment. Summary of care provided to patient. Understanding of the discharge instructions verbalized by patient.(Electronically signed by JUANITA Fowler 07/17/2019 20:35) Name Value Range Interpretation Code Description Data [facility] rce(s) Supporting Document(s) ID Date Data Source [id number] 07/17/2019 07:03:00 PM EST [facility] Name Value Range Interpretation Code Description Data [facility] rce(s) Supporting Document(s) COMPREHENSIVE METABOLIC PANEL [facility] COMPREHENSIVE METABOLIC PANEL Sodium [Moles/volume] in Serum or Plasma 139 mEq/L 134 - 153 [facility] Potassium [Moles/volume] in Serum or Plasma 4.4 mEq/L 3.6 - 5.0 [facility] Chloride [Moles/volume] in Serum or Plasma 100 mEq/L 98 - 107 [facility] Carbon dioxide, total [Moles/volume] in Serum or Plasma 29 MEQ/L 22 - 30 [facility] Glucose [Mass/volume] in Serum or Plasma 73 MG/DL 65 - 110 [facility] BUN 17 MG/DL 7 - 21 [facility] Creatinine [Mass/volume] in Serum or Plasma 1.2 MG/DL 0.7 - 1.5 [facility] BUN/CREAT 14 8 - 27 [facility] Protein [Mass/volume] in Serum or Plasma 7.8 G/DL 6.3 - 8.2 [facility] Albumin [Mass/volume] in Serum or Plasma 4.6 G/DL 3.9 - 5.0 [facility] Globulin [Mass/volume] in Serum by calculation 3.2 GM/DL 2.4 - 3.2 [facility] A/G RATIO 1.4 0.8 - 2.0 [facility] Calcium [Mass/volume] in Serum or Plasma 9.8 MG/DL 8.4 - 10.2 [facility] Bilirubin.total [Mass/volume] in Serum or Plasma <0.7 MG/DL 0.2 - 1.3 [facility] Alkaline phosphatase [Enzymatic activity/volume] in Serum or Plasma 81 U/L 38 - 126 [facility] Aspartate aminotransferase [Enzymatic activity/volume] in Serum or Plasma 41 U/L 5 - 40 H [facility] Alanine aminotransferase [Enzymatic activity/volume] in Seru m or Plasma 65 U/L 7 - 56 H [facility] Anion gap 3 in Serum or Plasma 10.0 mmol/L 8.0 - 16.0 [facility] AGE 18 yrs [facility] Hospit al NON-AA GFR >60 mL/min [facility] Hosp ital AFR AMER GFR >60 mL/min [facility] Ho spital Male GFR In terprentation 20-49 yrs >60 mL/min Normal 50-59 yrs >56 mL/min Normal 60-69 yrs >49 mL/min Normal 70-79yrs >42 mL/min Normal 80 and above >35 mL/min Normal Female GFR Interpretation 20-39 yrs >60 mL/min Normal 40-49 yrs >58 mL/min Normal 50-59 yrs >51 mL/min Normal 60-69 yrs >45 mL/min Normal 70-79 yrs >39 mL/min Normal 80 and above >32 mL/min Normal ID Date Data Source [id number] 07/17/2019 06:59:00 PM [facility] Name Value Range Interpretation Code Description Data Rashida rce(s) Supporting Document(s) Lipase [Enzymatic activity/volume] in Serum or Plasma 30 U/L 13 - 60 [facility] ID Date Data Source [id number] 07/17/2019 06:34:00 PM [facility] Name Value Range Interpretation Code Description Data Rashida rce(s) Supporting Document(s) CBC W/AUTOMATED DIFF [facility] COMPLETE BLOOD COUNT Leukocytes [#/volume] in Blood by Automated count 10.4 10^3/uL 4.2 - 11.0 [facility] Erythrocytes [#/volume] in Blood by Automated count 5.28 10^6/uL 4. 50 - 6.30 [facility] Hemoglobin [Mass/volume] in Blood 15.3 g/dL 14.0 - 16.0 [facility] Hematocrit [Volume Fraction] of Blood by Automated count 46.0 % 4 1.0 - 51.0 [facility] Erythrocyte mean corpuscular volume [Entitic volume] by Auto mated count 87.1 fL 80.0 - 94.0 [facility] Erythrocyte mean corpuscular hemoglobin [Entitic mass] by Automated count 29.0 pg 27.0 - 34.0 [facility] Erythrocyte mean corpuscular hemoglobin concentration [Mass/volume] by Automated count 33.3 g/dL 31.0 - 36.0 [facility] Erythrocyte distribution width [Ratio] by Automated count 12.5 % 11.5 - 14.8 [facility] Platelets [#/volume] in Blood by Automated count 291 10^3/uL 150 - 45 0 [facility] Platelet mean volume [Entitic volume] in Blood by Automated count 9.5 fL 7.4 - 10.4 [facility] Neutrophils/100 leukocytes in Blood by Automated count 67.7 % 37. 0 - 80.0 [facility] Lymphocytes/100 leukocytes in Blood by Manual count 21.8 % 25.0 - 40.0 L [facility] Monocytes/100 leukocytes in Blood by Automated count 9.1 % 3.0 - 8.0 H [facility] Eosinophils/100 leukocytes in Blood by Automated count 0.6 % 0.0 - 7.0 [facility] Basophils/100 leukocytes in Blood by Automated count 0.3 % 0.0 - 2.0 [facility] %IG 0.5 % 0.0 - 0.0 [facility] %[facility] 0.0 % 0.0 - 0.0 [facility] al Neutrophils [#/volume] in Blood by Automated count 7.06 10^3/uL 2.00 - 6.90 H [facility] Lymphocytes [#/volume] in Blood by Automated count 2.27 10^3/uL 0.60 - 3.40 [facility] Monocytes [#/volume] in Blood by Automated count 0.95 10^3/uL 0.00 - 0.90 H [facility] Eosinophils [#/volume] in Blood by Automated count 0.06 10^3/uL 0.00 - 0.70 [facility] Basophils [#/volume] in Blood by Automated count 0.03 10^3/uL 0.00 - 0.20 [facility] #IG 0.05 10^3/uL 0.00 - 0.10 [facility] #NRBC 0.00 10^3/uL 0.00 - 0.00 [facility] MANUAL DIFF NOT INDICATED [facility] RBC MORPH NOT INDICATED [facility] ID Date Data Source [id number] 07/17/2019 06:36:00 PM EST [facility] Name Value Range Interpretation Code Description Data Rashida rce(s) Supporting Document(s) [facility] R [facility] COLOR yellow NORMAL: Yellow [facility] CLARITY clear NORMAL: Clear [facility] Specific gravity of Urine by Test strip 1.020 1.001 - 1.030 [facility] pH 6.5 5 - 9 [facility] Glucose [Mass/volume] in Urine by Test strip NORM NORMAL: Negat [facility] Bilirubin.total [Presence] in Urine by Test strip NEG NORMAL: Negative [facility] Ketones [Presence] in Urine by Test strip 15 NORMAL: Negative A [facility] Protein [Mass/volume] in Urine by Test strip 15 NORMAL: Negat [facility] Nitrite [Presence] in Urine by Test strip NEG NORMAL: Negative [facility] BLOOD NEG NORMAL: Negative [facility] Leukocyte esterase [Presence] in Urine by Test strip NEG WU L: Negative [facility] Urobilinogen [Mass/volume] in Urine by Test strip NOR less mela n 1.0 mg/dL [facility] MICROSCOPIC See Below [facility] ital WBC 0 - 1 NORMAL: NONE SEEN [facility] Procedure Vital Signs ID Date Data Source UNK Name Value Range Interpretation Code Description Data Source(s) Body temperature 97.5 [degF] 97.5 [degF] [facility] ([facility]) Body weight 88.452 kg 88.452 kg [facility] Body mass index (BMI) [Ratio] 30.5 kg/m2 30.5 k g/m2 [facility] ([facility]) Heart rate 69 /min 69 /min [facility] Diastolic blood pressure 77 mm[Hg] 77 mm[Hg] [facility] ([facility]) Systolic blood pressure 111 mm[Hg] 111 mm[Hg] M EDBEN ([facility]) Body weight 195.00 [lb_av] 195.00 [lb_av] AGUSTINA T ([facility]) Body height 67 [in_i] 67 [in_i] [facility]) 5'7"
--- OUTSIDE RECORDS SUMMARY | 2020-07-26 18:12 | CCD | Continuity of Care Document ---
Author Author Carlos YATES M.D Organization Unknown Address [address] [place] [id number] Phone [phone] Care Team Providers Care Chronometer Assembler And Adjuster Name Role Phone Serge [facility] Problems Active Problems Provider Date [...] H/L Range Note Laboratory test finding 05/18/2020 [facility] [address] [place] [address] Pathology Request For Service (SEE NOTE) 1 1 FINAL DIAGNOSIS Colon, random, biopsies: Colonic mucosa with no specific changes. No evidence for microscopic colitis. 05/20/2020 - 0730 CLINICAL DIAGNOSIS Abdominal pain, heartburn, diarrhea 05/18/2020 - 1438 GROSS DIAGNOSIS Received in formalin labeled "random colon biopsies" is one fragment of stinson tissue 0.2 x 0.2 x 0.2 cm. All in one. -SV 05/18/2020 - 1437 Signed RACHELL GARCIA MD 05/20/2020 1405 Procedures Date Code Description Status 05/18/2020 24962 Colonoscopy Flexible W/Biopsy Co mpleted 05/18/2020 60005 Endoscopy Upper GI Complex Diagn ostic Completed [...] Date Kyle Yates M.D. Created [address] [place] [address] [phone]
--- OUTSIDE RECORDS SUMMARY | 2020-07-26 18:12 | CCD | Continuity of Care Document ---
Author Author Carlos YATES M.D Organization Unknown Address [address] [place] [phone] Phone [phone] Care Team Providers Care Cash Applications Manager Name Role Phone Serge Anne AUTM Problems Active Problems Provider Date Abdominal pain [...] 88.452 kg Body Temperature 97.5 F Results Description No Information Available Procedures Description No Information Available Medical Devices Description No Information Available Encounters Type Date Location Provider Dx Diagnosis Office Visit 04/30/2020 9:45a Main Office Kyle Yates M.D. R 19.7 Diarrhea, unspecified K21.9 Gastro-esophageal reflux dis ease without esophagitis Assessments Date Code Description Provider 04/30/2020 R19.7 Diarrhea Kyle rollins M.D. 04/30/2020 K21.9 Gastroesophageal reflux disease Kyle Yates M.D. Plan of Treatment Future Appointment(s):* 05/13/2020 7:45 am - [facility] Main [facility] * 05/18/2020 2:00 pm - Kyle Yates M.D. at Main Office 04/30/2020 - Kyle Yates M.D.* R19.7 Diarrhea* [...] Description No Information Available Referrals Refer to Dr Reason for Referral Status Appt Date Kyle Yates M.D. Created [address] [place] [phone]
[2020-07-26] MEDS ORDERED: RABIES VACCINE HUMAN 2.5 INTERNATIONAL UNITS/ML VIAL (90675) IM ONE (18:45)
--- OUTSIDE RECORDS SUMMARY | 2020-07-26 18:52 | CCD ---
Author Author [facility] Organization [facility] Address Unknown Phone Unavailable Care Team Providers Care Credit Collections Specialist Name Role Phone Brigette Yates MD Unavailable [...] Unavailable Brigette Yates MD Unavailable Unavailable Brigette Yatse MD Unavailable Unavailable Brigette Yates MD Unavailable Unavailable Brigette Yates MD Unavailable Unavailable Brigette Yates MD Unavailable Unavailable Brigette Yates MD Unavailable Unavailable Brigette Yates MD Unavailable Unavailable Brigette Yates MD Unavailable Unavailable Brigette Yates MD Unavailable Unavailable Brigette Yates MD Unavailable Unavailable Brigette Yates MD Unavailable Unavailable Brigette Yates MD Unavailable Unavailable Brigette Yates MD Unavailable Unavailable rBigette Yates MD Unavailable Unavailable Brigette Yates MD Unavailable Unavailable Brigette Yates MD Unavailable Unavailable Brigette Yates MD Unavailable Unavailable Brigette Yates MD Unavailable Unavailable Brigette Yates MD Unavailable Unavailable Brigette Yates MD Unavailable Unavailable Brigette Yates MD Unavailable Unavailable Milan, S Kyle GRAY Unavailable Unavailable Milan, S Kyle GRAY Unavailable Unavailable Milan, S Kyle MD Unavailable Unavailable Milan, S Kyle GRAY Unavailable Unavailable Milan, S Kyle MD [...] SMITH MD Unavailable [phone] BLACK, LESTER SIMTH MD Unavailable [phone] BLACK, LESTER SMITH [...] LESTER SMITH MD Unavailable [phone] UNKNOWN, [facility] Unavailable Unavailable Lucy RIVERA MD Unavailable Unavailable [...] is protected by Article 27-F of the [facility] Public Health law. If you continue you may have access to information: Regarding HIV / AIDS; Provided by facilities licensed or operated by the [facility] Office of Mental Health; or Provided by the [facility] Office for People With Developmental Disabilities. If such information is present, then the following [facility] mandated warning applies: This information has [...] law may result in a fine or mcc sentence or both. A general authorization for the release of medical or other information is NOT sufficient authorization for further disc losure. Encounters Encounter Providers Location Date Indications Data Source(s ) Emergency Attender: WU RIVERA MDConsultant: EMERSON MONTEZ 07/20/2020 01:59:00 AM EST - 07/20/2020 03:20:00 AM [facility] Patient discharged. Outpatient Attender: Kyle Yates MD Main Office 04/30/2020 09:45:00 AM EDT [facility] ([facility]) Outpatient 09/03/2019 08:02:00 AM [facility] Emergency Attender: SARAH BAPTISTE MD 0 07/17/2019 06:11:00 PM EST - 07/17/2019 07:13:00 PM [facility] Patient admitted. Medications Medication Brand Name Start Date Product Form Dose Route Admi nistrative Instructions Pharmacy Instructions Status Indications Reaction Description Data Source(s) Suprep Bowel Prep Kit Suprep Bowel Prep Kit 04/30/2020 12:00:00 AM EDT active [facility] ([facility]) Insurance Providers Payer name Policy type / Coverage type Policy ID Covered libertarian ID Covered libertarian's relationship to joseph Policy Joseph Plan Information [facility] ACTIVE DUTY [id number] SP [id number] [facility]P [id number] 18 [id number] [facility] O [id number] S [id number] SELF PAY ONLY [id number] SP [id number] Problems, Conditions, and Diagnoses Code Display Name Description Problem Type Effective Dates Data Source(s) 68869820 Abdominal pain Abdominal pain Problem 04/30/2020 12:00: 00 AM EDT [facility] ([facility]) [id number] Unspecified place in unspeci fied non-institutional (private) residence as the place of occurrence of the external cause Unspecified place in unspecified non-institutional (private) residence as the place of occurrence of the external cause Diagnosis 07/20/2020 01:59:00 AM [facility] [id number] Bitten by dog, initial encounter Bitten by dog, initial encounter Diagnosis 07/20/2020 01:59:00 AM [facility] [id number] Other terminal clerk (current) drug therapy O ther terminal clerk (current) drug therapy Diagnosis 07/20/2020 01:59:00 AM [facility] [id number] Laceration without foreign b joanne of other part of head, initial encounter Laceration without foreign body of other part of head, initial encounter Diagnosis 07/20/2020 01:59:00 AM [facility] [id number] Open bite of other part of head, initial encounter Open bite of other part of head, initial encounter Diagnosis 07/20/2020 01:59:00 AM [facility] R1013 Epigastric pain Epigastric pain Diagnosis 07/17/2019 06:1 1:00 PM [facility] R112 Nausea with vomiting, unspecified Nausea with vo miting, unspecified Diagnosis 07/17/2019 06:11:00 PM [facility] Surgeries/Procedures Procedure Description Date Indications Data Source(s) UPPER GI NDSC DX W/WO COLLECTION SPECIMEN 05/18/2020 1 2:00:00 AM EST [facility] ([facility]) COLONOSCOPY W/BIOPSY SINGLE/MULTIPLE 05/18/2020 12:00: 00 AM EST [facility] ([facility]) Results ID Date Data Source [id number] 07/20/2020 01:59:00 AM [facility] 1 OrderSheet [facility] Emergency Department [address] [place] [address] Phone #: [phone]- [id number] 07/20/2020 01:59 Patient: NEVA GUILLAUME Sex: M [...] (03:26 07/20/2020)][Electronically locked by Sonja Brannon R.N. (03:20 07/20/2020)] Name Value Range Interpretation Code Description Data Rashida rce(s) Supporting Document(s) ID Date Data Source [id number] 07/20/2020 01:59:00 AM [facility] 1 Medication Reconciliation Report [facility] Emergency Department [address] [place] [address] Phone #: ext- [phone] 07/20/2020 01:59 Patient: [...] Dispense 20 tablet. Refills: 0. Substitutionpermitted.Pharmacy - [facility] [id number] ; [place] [id number]. . -- Wu Rivera MD Name Value Range Interpretation Code Description Data Rashida rce(s) Supporting Document(s) ID Date Data Source [id number] 07/20/2020 01:59:00 AM [facility] 1 Medication Administration Record [facility] Emergency Department [address] [place] [address] Phone #: ext- [phone] 07/20/2020 01:59 Patient: [...] rce(s) Supporting Document(s) ID Date Data Source [id number] 07/20/2020 01:59:00 AM [facility] 1 General Instructions [facility] Emergency Department [address] [place] [address] Phone #: ext- [phone] 07/20/2020 01:59 Patient: [...] daily. The ED or animal control/public a [facility] will contact you regarding the possible [...] tablet. Refills: 0. Substitution permitted. Pharmacy - [facility] [id number] ; [place] [address]. . Follow-up: Follow up with your doctor in one week for suture removal and wound check. Call for an appointment. Reason for referral: evaluation. Summary of care provided to patient via paper. Understanding of the discharge instructions verbalized by patient. ADDITIONAL INFORMATIONAnimal Bite (General) 2 General Instructions [facility] Emergency Department [address] [place] [address] Phone #: ext- [phone] 07/20/2020 01:59 Patient: [...] domestic animals such as 3 General Instructions [facility] Emergency Department [address] [place] [address] Phone #: ext- [phone] 07/20/2020 01:59 Patient: [...] for signs of illness. (If the pet band attacher won't allow this, contact your local animal control center.) Ask the pet band attacher for vaccination records if available. If the [...] Confusion o Strange behavior 4 General Instructions [facility] Emergency Department [address] [place] [address] Phone #: ext- [phone] 07/20/2020 01:59 Patient: MASSALINESANDERS, NEVA T Sex: M : 2000 Age: 19y o Increased salivating and drooling o Seizure Decreased ability to move any body part near the bite area Bleeding that can't be stopped after 5 minutes of firm pressure [employer] [address] [place] [address]. All rights reserved. This information is not intended as asubstitute for professional medical care. Always follow your healthcare rosita mccarthy's instructions.Rabies Vaccine suspension for injectionWhat is this [...] muscle. It is given by a health progressive care nurse.A copy of Vaccine Information Statements will be given before each vaccination. Read this sheetcarefully each time. The sheet may change frequently.Talk to your learning and development manager regarding the use of this medicine in children. While this drug may beprescribed for children and infants, precautions do apply.What side effects may I notice from receiving this medicine?Side effects that you should report to your doctor or health progressive care nurse as soon as possible: allergic reactions like [...] continue or are bothersome): 5 General Instructions [facility] Emergency Department [address] [place] [address] Phone #: [phone]- [phone] 07/20/2020 01:59 Patient: NEVA GUILLAUME Sex: M : 2000 Age: 19y dizziness headache muscle [...] miss your dose. Call yourdoctor or health progressive care nurse if you are unable to keep an [...] conditions: bleeding disorder cancer 6 General Instructions [facility] Emergency Department [address] [place] [address] Phone #: ext- [phone] 07/20/2020 01:59 Patient: [...] closure or skin glue. 7 General Instructions [facility] Emergency Department [address] [place] [address] Phone #: ext- [phone] 07/20/2020 01:59 Patient: [...] pain medicines were prescribed, you can use wtjs-xcd-zszzseh pain medicines. Follow instructions for taking any [...] while the glue is 8 General Instructions [facility] Emergency Department [address] [place] [address] Phone #: ext- [phone] 07/20/2020 01:59 Patient: [...] be painful when eating. You may use dgpfxd-iid-zqopypt local numbing solution for pain relief. If [...] any of these occur: 9 General Instructions [facility] Emergency Department [address] [place] [address] Phone #: ext- [phone] 07/20/2020 01:59 Patient: [...] control the wound bleeding with direct pressure. [id number] [employer] [address] [place] [address], [place] [address]. All rights reserved. This information is not intended as asubstitute for professional medical care. Always follow your healthcare professional's instructions. You have been given the following additional information: Animal Bite (General) Rabies Vaccine suspension for injection Laceration: All Closures(Electronically signed by Wu Rivera MD 07/20/2020 03:26) Name Value Range Interpretation Code Description Data Rsahida rce(s) Supporting Document(s) ID Date Data Source [id number] 07/20/2020 01:59:00 AM EST [facility] 1 Clinical Report - Nurses [facility] Emergency Department [address] [place] [address] Phone #: ext- [phone] 07/20/2020 01:59 Patient: [...] dog was up to date on vaccines.).Treatment CDL SERVICE TECHNICIAN:None. --02:07 07/20/20 Sonja Brannon R.NLong02:02 07/20/20. BP: [...] R.N.PROBLEMS:Abdominal Pain. --02:05 07/20/20 Sonja Brannon R.N.ADDITIONAL SURGERIES:Colonoscopy.Tonsillectomy.Edroy teeth. --02:07/20/20 Sonja Brannon R.N.HistoryPAST MEDICAL HX: Tetanus status: up-to-date. Immunizations: up-to-date.SOCIAL HX: Smoker- current status unknown (vape). No alcohol use or drug use. He was offered HIVtesting but declined. Patient education was provided. He was offered hepatitis C testing but declined. 2 Clinical Report - Nurses [facility] Emergency Department [address] [place] [address] Phone #: ext- [phone] 07/20/2020 01:59 Patient: [...] verified and 3 Clinical Report - Nurses [facility] Emergency Department [address] [place] [address] Phone #: ext- [phone] 07/20/2020 01:59 Patient: [...] Patient verbalized understanding. Written instructions provided in Belarusian. ( Pt provided with suture care instructions). The patient was discharged home and accompanied by rapier insertion loom fixer. He left ambulatory and via private vehicle. Fraternity Adviser driving. --03:19 07/20/20 Sonja Brannon R.N. 03:19 07/20/20. BP: 145/87. MAP: 106. HR: 86. RR: 17. O2 saturation: 99% on room air. Temp: 97.9 F. Pain level now: 09/16. --03:20 07/20/20 Sonja Brannon R.N.Locked/Released at 07/20/2020 03:20 by Sonja Brannon R.N. Name Value Range Interpretation Code Description Data Rashida rce(s) Supporting Document(s) ID Date Data Source [id number] 07/20/2020 01:59:00 AM EST [facility] 1 Clinical Report - Physicians/Mid Levels [facility] Emergency Department [address] [place] [address] Phone #: ext- [phone] 07/20/2020 01:59 Patient: [...] had swelling, drainage or trouble swallowing. 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 (hydrogen peroxide).REVIEW OF [...] status is up-to-date. Additional Surgeries: Colonoscopy. Tonsillectomy. Edroy teeth. Medications: Carafate Oral. Omeprazole Oral. Allergies: No Known Drug Allergy.SOCIAL HISTORYNo drug use.ADDITIONAL NOTESThe nursing notes have been reviewed.PHYSICAL EXAMVital Signs: 07/20/2020 02:02 BP: 149/92. MAP: 111. HR: 88. RR: 19. O2 saturation: 100% on room air. 2 Clinical Report - Physicians/Mid Levels [facility] Emergency Department [address] [place] [address] Phone #: ext- [phone] 07/20/2020 01:59 Patient: NEVA GUILLAUME Sex: M [...] to 3 Clinical Report - Physicians/Mid Levels [facility] Emergency Department [address] [place] [address] Phone #: ext- [phone] 07/20/2020 01:59 Patient: NEVA GUILLAUME Sex: M : 2000 Age: 19y apply vit e oil and sunscreen for 2 years daily after sutures come out. pt given instructions and warning regarding infection and the need to return. [facility] dispatched was notified and they will call [...] tablet. Refills: 0. Substitution permitted. Pharmacy - [facility] [address] ; [place] [address]. . Follow- up: Follow up with your doctor in one week for suture removal and wound check. Call for an appointment. Reason for referral: evaluation. Summary of care prov ided to patient via paper. 4 Clinical Report - Physicians/Mid Levels [facility] Emergency Department [address] [place] [address] Phone #: ext- [phone] 07/20/2020 01:59 Patient: NEVA GUILLAUME Sex: M : 2000 Age: 19y Understanding of the discharge instructions verbalized by patient.(Electronically signed by Wu Rivera MD 07/20/2020 03:26) Name Value Range Interpretation Code Description Data Rashida rce(s) Supporting Document(s) ID Date Data Source [id number] 05/18/2020 10:33:00 AM EST [facility] ([facility]) Name Value Range Interpretation Code Description Data Rashida rce(s) Supporting Document(s) Surgical pathology study [facility] FINAL DIAGNOSIS Colon, random, biopsies: Colonic mucosa with no specific changes. No evidence for microscopic colitis. 05/20/2020729 CLINICAL DIAGNOSIS Abdominal pain, heartburn, diarrhea 05/18/20201437 GROSS DIAGNOSIS Received in formalin labeled "random colon biopsies" is one fragment of stinson tissue 0.2 x 0.2 x 0.2 cm. All in one. -SV 05/18/20201437 Signed RACHELL GARCIA MD 05/20/2020 1400 ID Date Data Source [id number] 07/22/2019 09:30:00 [place] [address] PHONE: [phone] FAX: [phone] Name .................. : MARKELL RIOJAS Acct Number.................. : [id number] ROOM. ................. : TR-1A MR Number ................... : [id number] Stay type ............. : E/R Discharge Date......... ... : 07/17/19 Admit Date ......... : 07/17/19 Admit Phys .................... : BLACK CHRI Date of ....... : 2000 Family Phys ................... : UNKNOWN Phone .................. : [phone] Age ................................ : 18 Film# .................. .:[id number] Sex ................................. : M Unsigned transcriptions are preliminary reports and do not represent a medical or legal document CT ABD & PELVIS W/ IV ONLY [id number] COMPLETE:07/17/19 18:57 [facility] [address] Reason(s): Abdominal Pain CT OF THE ABDOMEN [...] 75 [address] 370 Page 1 of [address] [place] [address] [place] [address] PHONE: [phone] FAX: [phone] Name .................. : MARKELL RIOJAS Acct Number.................. : [id number] ROOM. ................. : TR-1A MR Number ................... : [id number] Stay type ............. : E/R Discharge Date......... ... : 07/17/19 Admit Date ......... : 07/17/19 Admit Phys .................... : BLACK CHRI Date of ....... : 2000 Family Phys ................... : UNKNOWN Phone .................. : [phone] Age ................................ : 18 Film# .................. .:[id number] Sex ................................. : M Unsigned transcriptions are preliminary reports and do not represent a medical or legal document CT ABD & PELVIS W/ IV ONLY [id number] COMPLETE:07/17/19 18:57 [facility] [id number] Reason(s): Abdominal Pain Method of administration: Intravenous [...] rce(s) Supporting Document(s) ID Date Data Source [id number] 07/17/2019 06:11:00 PM EST [facility] 1 OrderSheet [facility] Emergency Department [address] [place] [address] Phone #: ext- [phone] 07/17/2019 18:00 Patient: NEVA GUILLAUME Sex: M : 2000 Age: 18yWEIGHT:95.2 kg (S) HEIGHT:67 inches (S) BMI:32.9ALLERGIES: No Known Drug AllergyCHIEF COMPLAINT: vomiting, diarrhea, abdominal pain, nauseaDIAGNOSIS: Abdominal painLAB ORDERSOrder Description Priority Entered Acknowledged InitialedCBC w Diff STAT 18:07/17/2019 18:31 Sanjay Mclaughlin R.N.;CMP STAT 18:07/17/2019 18:31 Sanjay Mclaughlin R.N.;Lipase STAT 18:07/17/2019 18:31 Sajnay Mclaughlin R.N.;Urinalysis (Clean STAT 18:23 07/17/2019 18:31 Anabela Mclaughlin R.N.;DIAGNOSTIC STUDY ORDERSOrder Description Priority Entered Acknowledged InitialedCT Abd PEL W/ IV STAT 18:23 07/17/2019 18:31 Arnoldo,Contrast Only Sanjay Cote R.N.(Oxygen?(No)) JUANITA;(IV?(Yes)) Reason for Study: Abdominal PainMEDICATION/IV/DRIP/FLUID ORDERSOrder Description Priority Entered Acknowledged InitialedNS IV : Bolus 1000 18:23 07/17/2019 18:57 Arnoldo,mL, then 150 mL/hr Sanjay GRANT;Zofran ODT PO 8 18:23 07/17/2019 18:34 Arnoldo,mg Sanjay GRANT;GENERAL ORDERS 2 OrderSheet [facility] Emergency Department [address] [place] [address] Phone #: ext- [phone] 07/17/2019 18:00 Patient: NEVA GUILLAUME Sex: M : 2000 Age: 18yOrder Description Priority Entered Acknowledged InitialedNPO 18:07/17/2019 18:31 Sanjay Mclaughlin R.N.;Saline Lock 18:07/17/2019 18:31 Sanjay Mclaughlin R.N.;[Electronically signed by Kera Mclaughlin R.N. (19:19 07/17/2019)][Electronically signed by Sanjay Hartman (20:35 07/17/2019)][Electronically locked by Kera Mclaughlin R.N. (19:19 07/17/2019)] Name Value Range Interpretation Code Description Data Rashida rce(s) Supporting Document(s) ID Date Data Source [id number] 07/17/2019 06:11:00 PM EST [facility] 1 Medication Reconciliation Report [facility] Emergency Department [address] [place] [address] Phone #: ext- [phone] 07/17/2019 18:00 Patient: [...] rce(s) Supporting Document(s) ID Date Data Source [id number] 07/17/2019 06:11:00 PM [facility] 1 Medication Administration Record [facility] Emergency Department [address] [place] [address] Phone #: ext- [phone] 07/17/2019 18:00 Patient: NEVA GUILLAUME Sex: M : 2000 Age: 18yWeight: 95.2 kgHeight/Length: 67 inBMI: 32.9ALLERGIES: No Known Drug Allergy Date/Time Medication Administered Medication OrderedStart NS [IV] NS IV : Bolus 1000 mL, then 46028:57 07/17/2019 Dose: IV Fluids mL/Kera Carcamo R.N. Bolus: 1000 mL wide open---- Dispensed: 1000 mL bagStop Site: #1 left AC19:14 07/17/2019Kera Sauceda R.N.Given ZOFRAN ODT [PO] (ONDANSETRON Zofran ODT PO 8 mg18:34 07/17/2019 HCL)Kera Mclaughlin R.N. Dose: 8 mg Oral Disintegrating Tablets PO Name Value Range Interpretation Code Description Data Rashida rce(s) Supporting Document(s) ID Date Data Source [id number] 07/17/2019 06:11:00 PM EST [facility] 1 General Instructions [facility] Emergency Department [address] [place] [address] Phone #: ext- [phone] 07/17/2019 18:00 Patient: NEVA GUILLAUME Sex: M : 2000 Age: 18yAcute generalized abdominal pain of undetermined cause.INSTRUCTIONS(supplemental nurse your previously prescribed nausea medicine.).Follow- up:Follow up [...] Certain diets may be 2 General Instructions [facility] Emergency Department [address] [place] [address] Phone #: ext- [phone] 07/17/2019 18:00 Patient: [...] chest, arm, back, neck or jaw pain [id number] [employer] [place] [address]. All rights reserved. This information is not intended as asubstitute for professional medical care. Always follow your healthcare professional's instructions. You have been given the following additional information: Unknown Causes of Abdominal Pain (Male) 3 General Instructions [facility] Emergency Department [address] [place] [address] Phone #: ext- [phone] 07/17/2019 18:00 Patient: NEVA GUILLAUME Sex: M : 2000 Age: 18y(Electronically signed by JUANITA Fowler 07/17/2019 20:35) Name Value Range Interpretation Code Description Data Rashida rce(s) Supporting Document(s) ID Date Data Source [id number] 07/17/2019 06:11:00 PM [facility] 1 Clinical Report - Nurses [facility] Emergency Department [address] [place] [address] Phone #: ext [phone] 07/17/2019 18:00 Patient: NEVA GUILLAUME Sex: M : 2000 Age: 18yTRIAGEHistorian: patient.Triage time: 18:02 07/17/2019. Acuity: LEVEL 3.Chief Complaint: ABDOMINAL PAIN, NAUSEA, VOMITING and DIARRHEA.Alert. No acute distress.( pt c/o abd pain while sleeping, vomiting in the morning for past 3 wks, diarrhea for the past two wks. pteating gummy worms in triage. pt states vomiting around 12:40. pt seen at [facility] after [place], dx withfood poisoning, given antinausea meds, did not fill rx.).SEPSIS SCREEN: NEGATIVE. --18:07 07/17/19October, R.N.18:02 07/17/19. BP: 108/75. MAP: 86. HR: 77. RR: 16. O2 saturation: 97%. Temp: 97.3 F. Pain level now:0/10. --18:07 07/17/19, October, R.N.Weight: 95.2 kg stated. Height/Length: 67 inches Per Patient. BMI: 32.9. --18:02 07/17/19, October, R.N.MedicationsNone. --18:04 07/17/19October, R.N.AllergiesNo Known Drug Allergy. --18:04 07/17/19October, R.N.PROBLEMS:no known problems.ADDITIONAL SURGERIES:Tonsillectomy. --18:04 07/17/19 Leyla, [...] yourself?" and 2 Clinical Report - Nurses [facility] Emergency Department [address] [place] [address] Phone #: ext- [phone] 07/17/2019 18:00 Patient: [...] 07/17/19 Kera Mclaughlin R.N. Patient transported to [place] by wheelchair with tech. --18:35 07/17/19 Kera Mclaughlin R.N. Patient returned from [place] by wheelchair with tech. --18:45 07/17/19 Kera [...] and precautions. 3 Clinical Report - Nurses [facility] Emergency Department [address] [place] [address] Phone #: ext- [phone] 07/17/2019 18:00 Patient: [...] (please see paper copy). Reviewed medication(s) (Please orange picking supervisor previously prescribed nausea medication). Patient and spouse verbalized understanding. Written instructions provided in Belarusian. The patient was discharged by the physician golf course assistant. He was discharged home and accompanied by spouse. He left ambulatory and via private vehicle. Spouse driving. --19:19 07/17/19 Kera Mclaughlin R.N.Locked/Released at 07/17/2019 19:19 by Kera Mclaughlin R.N. Name Value Range Interpretation Code Description Data Rashida rce(s) Supporting Document(s) ID Date Data Source [id number] 07/17/2019 06:11:00 PM [facility] 1 Clinical Report - Physicians/Mid Levels [facility] Emergency Department [address] [place] [address] Phone #: ext- [phone] 07/17/2019 18:00 Patient: NEVA GUILLAUME Sex: M [...] states vomiting around 12:40. pt seen at [facility] after [place], dx with food poisoning, given [...] use. 2 Clinical Report - Physicians/Mid Levels [facility] Emergency Department [address] [place] [address] Phone #: ext- [phone] 07/17/2019 18:00 Patient: NEVA GUILLAUME Sex: M [...] results 3 Clinical Report - Physicians/Mid Levels [facility] Emergency Department [address] [place] [address] Phone #: ext- [phone] 07/17/2019 18:00 Patient: NEVA GUILLAUME Sex: M : 2000 Age: 18y Test [...] Ro. 4 Clinical Report - Physicians/Mid Levels [facility] [place] [address] Phone #: ext- [phone] 07/17/2019 18:00 Patient: NEVA GUILLAUME Sex: M : 2000 Age: 18yPROGRESS AND PROCEDURESCourse of Care: 19:09 Jul 17 2019. Evaluation after observation. (Discussed exam, lab, and CT findingsand pt is agreeable with dx and tx plan. Follow up with DORA PA for referral to GI if symptoms persist.). Patient and spouse counseled in person regarding the patient's stable condition, test results, diagnosis and need for follow-up. Patient and spouse agrees with plan of care. 19:Jul 17 2019. Disposition: Discharged home in good and improved condition (:Jul 17 2019).CLINICAL IMPRESSION Acute generalized abdominal pain of undetermined cause.INSTRUCTIONS (supplemental nurse your previously prescribed nausea medicine.). Follow-up: Follow up with your doctor refer to Gastroenterology if symptoms persist. tomorrow. Reason for referral: evaluation and treatment. Summary of care provided to patient. Understanding of the discharge instructions verbalized by patient.(Electronically signed by JUANITA Fowler 07/17/2019 20:35) Name Value Range Interpretation Code Description Data [facility] rce(s) Supporting Document(s) ID Date Data Source [id number] 07/17/2019 07:03:00 PM EST [facility] Name Value Range Interpretation Code Description Data [facility] rce(s) Supporting Document(s) COMPREHENSIVE METABOLIC PANEL [facility] COMPREHENSIVE METABOLIC PANEL Sodium [Moles/volume] in Serum or Plasma 139 mEq/L 134 - 153 [facility] Potassium [Moles/volume] in Serum or Plasma 4.4 mEq/L 3.6 - 5.0 [facility] Chloride [Moles/volume] in Serum or Plasma 100 mEq/L 98 - 107 [facility] Carbon dioxide, total [Moles/volume] in Serum or Plasma 29 MEQ/L 22 - 30 [facility] Glucose [Mass/volume] in Serum or Plasma 73 MG/DL 65 - 110 [facility] BUN 17 MG/DL 7 - 21 [facility] Creatinine [Mass/volume] in Serum or Plasma 1.2 MG/DL 0.7 - 1.5 [facility] BUN/CREAT 14 8 - 27 [facility] Protein [Mass/volume] in Serum or Plasma 7.8 G/DL 6.3 - 8.2 [facility] Albumin [Mass/volume] in Serum or Plasma 4.6 G/DL 3.9 - 5.0 [facility] Globulin [Mass/volume] in Serum by calculation 3.2 GM/DL 2.4 - 3.2 [facility] A/G RATIO 1.4 0.8 - 2.0 [facility] Calcium [Mass/volume] in Serum or Plasma 9.8 MG/DL 8.4 - 10.2 [facility] Bilirubin.total [Mass/volume] in Serum or Plasma <0.7 MG/DL 0.2 - 1.3 [facility] Alkaline phosphatase [Enzymatic activity/volume] in Serum or Plasma 81 U/L 38 - 126 [facility] Aspartate aminotransferase [Enzymatic activity/volume] in Serum or Plasma 41 U/L 5 - 40 H [facility] Alanine aminotransferase [Enzymatic activity/volume] in Seru m or Plasma 65 U/L 7 - 56 H [facility] Anion gap 3 in Serum or Plasma 10.0 mmol/L 8.0 - 16.0 [facility] AGE [address] [facility] NON-AA GFR >60 mL/min [facility] AFR AMER GFR >60 mL/min [facility] Male GFR In terprentation 20-49 [...] >32 mL/min Normal ID Date Data Source [id number] 07/17/2019 06:59:00 PM [facility] Name Value Range Interpretation Code Description Data Rashida rce(s) Supporting Document(s) Lipase [Enzymatic activity/volume] in Serum or Plasma 30 U/L 13 - 60 [facility] ID Date Data Source [id number] 07/17/2019 06:34:00 PM [facility] Name Value Range Interpretation Code Description Data Rashida rce(s) Supporting Document(s) CBC W/AUTOMATED DIFF [facility] COMPLETE BLOOD COUNT Leukocytes [#/volume] in Blood by Automated count 10.4 10^3/uL 4.2 - 11.0 [facility] Erythrocytes [#/volume] in Blood by Automated count 5.28 10^6/uL 4. 50 - 6.30 [facility] Hemoglobin [Mass/volume] in Blood 15.3 g/dL 14.0 - 16.0 [facility] Hematocrit [Volume Fraction] of Blood by Automated count 46.0 % 4 1.0 - 51.0 [facility] Erythrocyte mean corpuscular volume [Entitic volume] by Auto mated count 87.1 fL 80.0 - 94.0 [facility] Erythrocyte mean corpuscular hemoglobin [Entitic mass] by Automated count 29.0 pg 27.0 - 34.0 [facility] Erythrocyte mean corpuscular hemoglobin concentration [Mass/volume] by Automated count 33.3 g/dL 31.0 - 36.0 [facility] Erythrocyte distribution width [Ratio] by Automated count 12.5 % 11.5 - 14.8 [facility] Platelets [#/volume] in Blood by Automated count 291 10^3/uL 150 - 45 0 [facility] Platelet mean volume [Entitic volume] in Blood by Automated count 9.5 fL 7.4 - 10.4 [facility] Neutrophils/100 leukocytes in Blood by Automated count 67.7 % 37. 0 - 80.0 [facility] Lymphocytes/100 leukocytes in Blood by Manual count 21.8 % 25.0 - 40.0 L [facility] Monocytes/100 leukocytes in Blood by Automated count 9.1 % 3.0 - 8.0 H [facility] Eosinophils/100 leukocytes in Blood by Automated count 0.6 % 0.0 - 7.0 [facility] Basophils/100 leukocytes in Blood by Automated count 0.3 % 0.0 - 2.0 [facility] %IG 0.5 % 0.0 - 0.0 [facility] %[facility] 0.0 % 0.0 - 0.0 [facility] al Neutrophils [#/volume] in Blood by Automated count 7.06 10^3/uL 2.00 - 6.90 H [facility] Lymphocytes [#/volume] in Blood by Automated count 2.27 10^3/uL 0.60 - 3.40 [facility] Monocytes [#/volume] in Blood by Automated count 0.95 10^3/uL 0.00 - 0.90 H [facility] Eosinophils [#/volume] in Blood by Automated count 0.06 10^3/uL 0.00 - 0.70 [facility] Basophils [#/volume] in Blood by Automated count 0.03 10^3/uL 0.00 - 0.20 [facility] #IG 0.05 10^3/uL 0.00 - 0.10 [facility] #NRBC 0.00 10^3/uL 0.00 - 0.00 [facility] MANUAL DIFF NOT INDICATED [facility] RBC MORPH NOT INDICATED [facility] ID Date Data Source [id number] 07/17/2019 06:36:00 PM EST [facility] Name Value Range Interpretation Code Description Data Rashida rce(s) Supporting Document(s) [facility] yellow NORMAL: Yellow [facility] CLARITY clear NORMAL: Clear [facility] Specific gravity of Urine by Test strip 1.020 1.001 - 1.030 [facility] pH 6.5 5 - 9 [facility] Glucose [Mass/volume] in Urine by Test strip NORM NORMAL: Negat [facility] Bilirubin.total [Presence] in Urine by Test strip NEG NORMAL: Negative [facility] Ketones [Presence] in Urine by Test strip 15 NORMAL: Negative [facility] Protein [Mass/volume] in Urine by Test strip 15 NORMAL: Negat [facility] Nitrite [Presence] in Urine by Test strip NEG NORMAL: Negative [facility] BLOOD NEG NORMAL: Negative [facility] Leukocyte esterase [Presence] in Urine by Test strip NEG WU L: Negative [facility] Urobilinogen [Mass/volume] in Urine by Test strip NOR less mela n 1.0 mg/dL [facility] MICROSCOPIC See Below [facility] WBC 0 - 1 NORMAL: NONE SEEN [facility] Procedure Vital Signs ID Date Data Source UNK Name Value Range Interpretation Code Description Data Source(s) Body temperature 97.5 [degF] 97.5 [degF] [facility] ([facility]) Body weight 88.452 kg 88.452 kg [facility] ([facility] Body mass index (BMI) [Ratio] 30.5 kg/m2 30.5 k g/m2 [facility] ([facility]) Heart rate 69 /min 69 /min [facility] Diastolic blood pressure 77 mm[Hg] 77 mm[Hg] [facility] ([facility]) Systolic blood pressure 111 mm[Hg] 111 mm[Hg] M GREY ([facility]) Body weight 195.00 [lb_av] 195.00 [lb_av] AGUSTINA T ([facility]) Body height 67 [in_i] 67 [in_i] [facility]7"
== END 2020-07-26 19:02 | disposition home or self-care (01) ==
LOC: M ED 18:06
DX: Z20.3 Contact with and (suspected) exposure to rabies (principal); Z79.899 Other long term (current) drug therapy